=== PATIENT | female | born 1990 | race Caucasian/White ===

== ENCOUNTER 2024-08-26 17:07 | Emergency (ER) | payer OTHER ==
--- NOTE | 2024-08-26 17:16 | ERPHSYRPT ---
- History of Present Illness Time Seen by Provider: 08/26/24 17:15 Historian: patient, family Exam Limitations: no limitations Physician History: Pt had onset of sharp RUQ pain yesterday and came to ER today. No hx of trauma or fall. No blood thinners. Had GB out previously and TAHBSO. tender RUQ/ RLQ. Not SObreath No CP but has right rib pain with breath. Chest clear ht reg without M. Discussed with pt and family risks and benefits of testing/Tx including CBC, CMP, EKG, UA, Amylase, Lipase, CT abd , pain med, and they wish to p roceed so these are ordered. Results discussed with pt and available family. Timing/Duration: yesterday Activities at Onset: none Quality: sharpness, stabbing Abdominal Pain Onset Location: RUQ Pain Radiation: RLQ Severity of Pain-Max: moderate Severity of Pain-Current: moderate Associated Symptoms: denies symptoms Previous symptoms: no prior history Allergies/Adverse Reactions: diphenhydramine [From Benadryl] Allergy (Verified 08/26/24 17:24) ketorolac [From Toradol] Allergy (Verified 08/26/24 17:24) naproxen Allergy (Verified 08/26/24 17:24) tramadol Allergy (Verified 08/26/24 17:24) Home Medications: Estradiol [Menostar] 0.075 mg TD 2XW 08/26/24 [History] Fluoxetine HCl 20 mg PO DAILY 08/26/24 [History] LORazepam [Lorazepam] 1 mg PO BID 08/26/24 [History] - Review of Systems Constitutional: No Fever, No Chills Eyes: No Symptoms Ears, Nose, & Throat: No Symptoms Respiratory: No Cough, No Dyspnea Cardiac: No Chest Pain, No Edema, No Syncope Abdominal/Gastrointestinal: Abdominal Pain, No Nausea, No Vomiting, No Diarrhea Genitourinary Symptoms: No Dysuria Musculoskeletal: No Back Pain, No Neck Pain Skin: No Rash Neurological: No Dizziness, No Focal Weakness, No Sensory Changes Psychological: No Symptoms Endocrine: No Symptoms Hematologic/Lymphatic: No Symptoms Immunological/Allergic: No Symptoms All Other Systems: Reviewed and Negative - Past Medical History Pertinent Past Medical History: Yes GI Medical History: Gallbladder Disease - Past Surgical History Gastrointestinal: Cholecystectomy Female Surgical History: Hysterectomy - Nursing Vital Signs Nursing Vital Signs: Initial Vital Signs Temperature 98.1 F 08/26/24 17:14 Pulse Rate 119 H 08/26/24 17:14 Blood Pressure 132/96 08/26/24 17:14 O2 Sat by Pulse Oximetry 100 08/26/24 17:14 Pain Scale Pain Intensity 6 - Physical Exam General Appearance: no apparent distress, alert Eye Exam: PERRL/EOMI, eyes nml inspection Ears, Nose, Throat Exam: normal ENT inspection, pharynx normal, moist mucous membranes Neck Exam: normal inspection, non-tender, supple, full range of motion Respiratory Exam: normal breath sounds, lungs clear, No respiratory distress Cardiovascular Exam: regular rate/rhythm, normal heart sounds Gastrointestinal/Abdomen Exam: soft, tenderness (RUQ), No distention, No mass, No guarding, No pulsatile mass, No rebound Pelvic Exam: deferred Rectal Exam: deferred Back Exam: normal inspection, normal range of motion, No CVA tenderness, No vertebral tenderness Extremity Exam: normal inspection, normal range of motion, pelvis stable Neurologic Exam: alert, oriented x 3, cooperative, normal mood/affect, nml cerebellar function, sensation nml, No motor deficits Skin Exam: normal color, warm, dry SpO2 Interpretation: normal SpO2: 100 O2 Delivery: Room Air - Course Nursing assessment & vital signs reviewed: Yes EKG Interpreted by Me: Sinus Rhythm, NORMAL AXIS, NORMAL INTERVALS, NORMAL QRS, NORMAL ST-T, Other (LAE) - CT Exams Abdomen/Pelvis CT Interpretation: Tele-radiologist Report, Normal Appendix, No appendicitis, Other (thickening duodenum and jejunum ground glass lungs and nodules) Ordered Tests: Active Orders 24 hr Category Date Time Status EKG-ER Only STAT Care 08/26/24 17:43 Active IV Insertion STAT Care 08/26/24 17:43 Active ABDOMEN AND PELVIS W/0 CONTRAS [CT] Stat Exams 08/26/24 17:44 Completed AMYLASE Stat Lab 08/26/24 17:55 Completed CBC W DIFF Stat Lab 08/26/24 17:55 Completed CMP Stat Lab 08/26/24 17:55 Completed LIPASE Stat Lab 08/26/24 17:55 Completed Lactic Acid Stat Lab 08/26/24 17:50 Completed UA W/RFX UR CULTURE Stat Lab 08/26/24 17:56 Completed Medication Summary Discontinued Medications Generic Name Dose Route Start Last Admin Trade Name Freq PRN Reason Stop Dose Admin Hydromorphone HCl 0.5 mg 08/26/24 17:46 08/26/24 18:00 Hydromorphone 1 Mg/1ml Inj IV 08/26/24 17:47 0.5 mg STAT ONE Administration Hydromorphone HCl Confirm 08/26/24 17:58 Hydromorphone 1 Mg/1ml Inj Administered 08/26/24 17:59 Dose 1 mg .ROUTE .STK-MED ONE Hydromorphone HCl 1 mg 08/26/24 19:11 08/26/24 19:19 Hydromorphone 1 Mg/1ml Inj IV 08/26/24 19:12 1 mg STAT ONE Administration Hydromorphone HCl Confirm 08/26/24 19:17 Hydromorphone 1 Mg/1ml Inj Administered 08/26/24 19:18 Dose 1 mg .ROUTE .STK-MED ONE Ondansetron HCl 4 mg 08/26/24 17:43 08/26/24 18:00 Ondansetron Hcl 4 Mg/2 Ml Vial IV 08/26/24 17:44 4 mg STAT ONE Administration Ondansetron HCl Confirm 08/26/24 17:58 Ondansetron Hcl 4 Mg/2 Ml Vial Administered 08/26/24 17:59 Dose 4 mg .ROUTE .STK-MED ONE Lab/Rad Data: Laboratory Result Diagrams 08/26/24 17:55 08/26/24 17:55 Laboratory Results 08/26/24 08/26/24 08/26/24 Range/Units 19:17 17:56 17:55 WBC (3.98-10.04) x10^3/uL RBC (3.93-5.22) x10^6/uL Hgb (11.2-15.7) g/dL Hct (34.1-44.9) % MCV (79.4-94.8) fL MCH (25.6-32.2) pg MCHC (32.2-35.5) g/dL RDW (11.7-14.4) % Plt Count (182-369) x10^3/uL MPV (9.4-12.3) fL Gran % (34.0-71.1) % Immature Gran % (Auto) (0.001-0.429) % Nucleat RBC Rel Count (0.00-0.2) % Eos # (Auto) (0.04-0.36) x10^3/uL Immature Gran # (Auto) (0.001-0.031) x10^3u/L Absolute Lymphs (auto) (1.18-3.74) x10^3/uL Absolute Monos (auto) (0.24-0.86) x10^3/uL Absolute Nucleated RBC (0.00-0.012) x10^3u/L Lymphocytes % (19.3-51.7) % Monocytes % (4.7-12.5) % Eosinophils % (0.7-5.8) % Basophils % (0.1-1.2) % Absolute Granulocytes (1.56-6.13) x10^3/uL Basophils # (0.01-0.08) x10^3/uL Sodium 138 (135-145) mmol/L Potassium 3.5 (3.5-5.1) mmol/L Chloride 107 (98-107) mmol/L Carbon Dioxide 25 (22-30) mmol/L Anion Gap 9.8 (5-15) MEQ/L BUN 6 L (7-17) mg/dL Creatinine 0.69 (0.52-1.04) mg/dL Estimated GFR 116.7 ML/MIN Glucose 97 (74-106) mg/dL Lactic Acid (0.4-2.0) Calcium 8.8 (8.4-10.2) mg/dL Total Bilirubin 0.50 (0.2-1.3) mg/dL AST 26 (14-36) U/L ALT 15 (0-35) U/L Alkaline Phosphatase 105 (38-126) U/L Serum Total Protein 8.0 (6.3-8.2) g/dL Albumin 4.4 (3.5-5.0) g/dL Amylase 49 (30-110) U/L Lipase 147 (23-300) U/L Urine Color Yellow (Yellow) Urine Appearance Clear (Clear) Urine pH 8.0 (4.6-8.0) Ur Specific [place] 1.010 (1.005-1.030) Urine Protein Negative (Negative) Urine Glucose (UA) Negative (Negative) mg/dL Urine Ketones Negative (Negative) Urine Blood Negative (Negative) Urine Nitrite Negative (Negative) Urine Bilirubin Negative (Negative) Urine Urobilinogen 0.2 (0.2) mg/dL Ur Leukocyte Esterase Negative (Negative) U Hyaline Cast (Auto) NONE SEEN (0-2) /LPF Urine Microscopic RBC 0-2 (0-5) /HPF Urine Microscopic WBC 0-2 (0-5) /HPF Ur Epithelial Cells None Seen (None Seen) /HPF Urine Bacteria None Seen (None Seen) /HPF Urine Culture Reflexed NO (NO) Influenza Type A Ag NEGATIVE (NEGATIVE) Influenza Type B Ag NEGATIVE (NEGATIVE) RSV (PCR) NEGATIVE (NEGATIVE) SARS-CoV-2 (PCR) NEGATIVE (NEGATIVE) 08/26/24 08/26/24 Range/Units 17:55 17:50 WBC 7.2 (3.98-10.04) x10^3/uL RBC 3.99 (3.93-5.22) x10^6/uL Hgb 11.7 (11.2-15.7) g/dL Hct 35.6 (34.1-44.9) % MCV 89.2 (79.4-94.8) fL MCH 29.3 (25.6-32.2) pg MCHC 32.9 (32.2-35.5) g/dL RDW 12.8 (11.7-14.4) % Plt Count 332 (182-369) x10^3/uL MPV 9.1 L (9.4-12.3) fL Gran % 60.8 (34.0-71.1) % Immature Gran % (Auto) 0.3 (0.001-0.429) % Nucleat RBC Rel Count 0.0 (0.00-0.2) % Eos # (Auto) 0.02 L (0.04-0.36) x10^3/uL Immature Gran # (Auto) 0.02 (0.001-0.031) x10^3u/L Absolute Lymphs (auto) 2.33 (1.18-3.74) x10^3/uL Absolute Monos (auto) 0.42 (0.24-0.86) x10^3/uL Absolute Nucleated RBC 0.00 (0.00-0.012) x10^3u/L Lymphocytes % 32.4 (19.3-51.7) % Monocytes % 5.8 (4.7-12.5) % Eosinophils % 0.3 L (0.7-5.8) % Basophils % 0.4 (0.1-1.2) % Absolute Granulocytes 4.37 (1.56-6.13) x10^3/uL Basophils # 0.03 (0.01-0.08) x10^3/uL Sodium (135-145) mmol/L Potassium (3.5-5.1) mmol/L Chloride (98-107) mmol/L Carbon Dioxide (22-30) mmol/L Anion Gap (5-15) MEQ/L BUN (7-17) mg/dL Creatinine (0.52-1.04) mg/dL Estimated GFR ML/MIN Glucose (74-106) mg/dL Lactic Acid 1.0 (0.4-2.0) Calcium (8.4-10.2) mg/dL Total Bilirubin (0.2-1.3) mg/dL AST (14-36) U/L ALT (0-35) U/L Alkaline Phosphatase (38-126) U/L Serum Total Protein (6.3-8.2) g/dL Albumin (3.5-5.0) g/dL Amylase (30-110) U/L Lipase (23-300) U/L Urine Color (Yellow) Urine Appearance (Clear) Urine pH (4.6-8.0) Ur Specific [place] (1.005-1.030) Urine Protein (Negative) Urine Glucose (UA) (Negative) mg/dL Urine Ketones (Negative) Urine Blood (Negative) Urine Nitrite (Negative) Urine Bilirubin (Negative) Urine Urobilinogen (0.2) mg/dL Ur Leukocyte Esterase (Negative) U Hyaline Cast (Auto) (0-2) /LPF Urine Microscopic RBC (0-5) /HPF Urine Microscopic WBC (0-5) /HPF Ur Epithelial Cells (None Seen) /HPF Urine Bacteria (None Seen) /HPF Urine Culture Reflexed (NO) Influenza Type A Ag (NEGATIVE) Influenza Type B Ag (NEGATIVE) RSV (PCR) (NEGATIVE) SARS-CoV-2 (PCR) (NEGATIVE) - Progress Progress: improved, re-examined Progress Note: 08/26/24 17:59 initial pain level is 9. pt has jean paul dilaudid previously well. 08/26/24 20:54 pain is at 0 now. DIscussed doudinitis findings with pt and she would like to begin presumptive tx H pylori now rather than wait for testing and has the capacity to make this choice. pt also is advised that we do not have a precise diagnosis for her abd pain and that undetected pathology could still be developing including more serious conditions. She understands and wishes outpt tx for the h pylori presumptively and f/u PMD and electromechanical assembly technician rather than admission tonight or further w/u in hospital or ER and has the capacity to make this choice. Counseled pt/family regarding: lab results, diagnosis, need for follow-up, rad results Medical Desision Making - Independent Historian Additional History obtained from: Family - Discussion of managment Reviewed:: Test results, Need for additional workup Agreed on:: Treatment plan, need for follow-up - Diagnostic Testing Diagnostic test were ordered, analyzed, and reviewed by me: Yes Radiological Interpretation: Teleradiologist Report - Risk of complications The pt has a mod risk of morbidity or mortality based on: Need for prescription drug management The pt has a high risk of morbidity or mortality based on: Decision regarding hospitilization or escalation of hosp level of care - Departure Departure Disposition: Home Clinical Impression: Abdominal pain, Duodenitis, lung nodules Condition: Good Critical Care Time: No Referrals: NAOMI PONCE MD [Primary Care Provider] - Follow up/PCP as directed Instructions: H. pylori infection, Abdominal pain in adults - ED discharge instructions, Multiple pulmonary nodules Additional Instructions: We have not determined for certain the exact cause of your pain, but did find inflammation in the duodenum which can be caused by H pylori infections and as we agreed will will begin that treatment . It is still important for you to followup with your DrSabine to finish working this up and to exclude other conditions. You also have some lung findings and nodule although you had no lung symptoms but these are important to also see your Dr, for and he may want additoinal imaging for these nodules. Return meantime if vomiting, increased pain, dizziness, short of breath chest pain or any other symptoms of concern. Prescriptions: Amoxicillin 1,000 mg PO BID #60 tablet Amoxicillin [AMOXIL 250 MG CAPSULE] 1,000 mg PO BID #120 cap Clarithromycin 500 mg PO BID #30 tablet Omeprazole 20 mg PO DAILY #20 cap
[2024-08-26 17:24] VITALS: TEMP 98.1
[2024-08-26 17:58] LABS: Absolute Neutrophil Ct (ANC) 4.37 x10^3/uL (1.56-6.13); BASOPHIL % 0.4 % (0.1-1.2); Basophil (Absolute #) 0.03 x10^3/uL (0.01-0.08); Eosinophil % 0.3 % (0.7-5.8); Eosinophil (Absolute #) 0.02 x10^3/uL (0.04-0.36); Hematocrit 35.6 % (34.1-44.9); Hemoglobin 11.7 g/dL (11.2-15.7); IMMATURE GRAN # 0.02 x10^3u/L (0.001-0.031); IMMATURE GRAN % 0.3 % (0.001-0.429); Lymphocyte (Absolute #) 2.33 x10^3/uL (1.18-3.74); Lymphocytes % 32.4 % (19.3-51.7); Mean Cell Volume 89.2 fL (79.4-94.8); Mean Corpuscular Hemoglobin 29.3 pg (25.6-32.2); Mean Corpuscular Hgb Concent. 32.9 g/dL (32.2-35.5); Mean Platelet Volume 9.1 fL (9.4-12.3); Monocyte (Absolute #) 0.42 x10^3/uL (0.24-0.86); Monocytes % 5.8 % (4.7-12.5); Neutrophil % 60.8 % (34.0-71.1); Platelet Count 332 x10^3/uL (182-369); Red Blood Count 3.99 x10^6/uL (3.93-5.22); Red Cell Distribution Width 12.8 % (11.7-14.4); White Blood Count 7.2 x10^3/uL (3.98-10.04)
[2024-08-26] MEDS ORDERED: Zofran 4 MG/2 ML VIAL ONE (17:58)
[2024-08-26] MEDS ORDERED: Hydromorphone 1 mg/ml Injection ONE ×2 (17:58→19:17)
[2024-08-26] MEDS: Zofran 4 MG/2 ML VIAL IV ONE (18:00)
[2024-08-26] MEDS: Hydromorphone 1 mg/ml Injection IV ONE ×2 (18:00→19:19)
[2024-08-26 18:10] LABS: ALBUMIN 4.4 g/dL (3.5-5.0); ANION GAP 9.8 MEQ/L (5-15); BILIRUBIN,TOTAL 0.5 mg/dL (0.2-1.3); Calcium 8.8 mg/dL (8.4-10.2); Creatinine 1 0.69 mg/dL (0.52-1.04); EST GLOMERULAR FILTRATION RATE 116.7 ML/MIN; Potassium 3.5 mmol/L (3.5-5.1)
[2024-08-26 18:40] LABS: Appearance Clear (Clear); Bacteria None Seen /HPF (None Seen); Bilirubin Negative (Negative); Blood Negative (Negative); Epithelial Cells None Seen /HPF (None Seen); Glucose, Urine Negative (Negative); Hyaline Casts NONE SEEN /LPF (0-2); Ketones Negative (Negative); Leukocyte Esterase Negative (Negative); Nitrite Negative (Negative); Protein,Urine Dip Negative (Negative); RBC 0-2 /HPF (0-5); Urobilinogen 0.2 mg/dL (0.2); WBC 0-2 /HPF (0-5)
--- NOTE | 2024-08-26 18:54 | XRAY ---
CLINICAL HISTORY: right abd pain COMPARISON: No prior studies available for comparison TECHNIQUE: Non-contrast CT of the abdomen and pelvis was performed, with the following protocol: axial images, and reconstructed coronal and sagittal images. No intravenous contrast was administered. One of the following dose reduction techniques was utilized for this exam: Automated exposure control, adjustment of the mA and/or kV according to patient size, and use of iterative reconstruction. FINDINGS: Lung bases: Patchy ground-glass opacities and several nodules are seen in both lung bases, middle lobe and lingula. The largest nodule measures about 0.7 cm in the middle lobe. Abdomen: Liver: Normal in size, shape, and density. No focal lesions, cysts, or masses were identified. Gallbladder and Biliary System: Not seen, may be surgicall absent. Pancreas: Pancreatic head, body, and tail are visualized and appear normal in size and density. No pancreatic masses or calcifications were noted. Spleen: Normal in size, shape, and density. No splenic lesions or masses were identified. Kidneys and Adrenal Glands: Both kidneys are normal in size, shape, and position. Cortical thickness is within normal limits. No renal calculi or hydronephrosis. Adrenal glands are unremarkable. Appendix: The appendix is normal in size without naveen appendiceal fat stranding, and without an appendicolith. No evidence of appendiceal abscess or perforation. Pelvis: Urinary Bladder: Normal in contour and wall thickness. No intraluminal lesions. Uterus: Not seen. Ovaries: Not well visualized but no gross abnormalities noted. Vagina: Normal in contour and wall thickness. Cervix: No evidence of mass or abnormal thickening. Peritoneal and Retroperitoneal Structures: No free fluid or abnormal fluid collections were identified within the abdomen or pelvis. A 0.8 cm para-aortic lymph node, could be reactive. Bowel: Circumferential wall thickening of the duodenum and proximal jejunum. The rest of the visualized bowel loops are normal in caliber and appearance. No evidence of bowel obstruction or wall thickening. Fecal colonic loading. Bones and Soft Tissues: Pelvic bones and soft tissues are unremarkable. No fractures or abnormal masses were identified. IMPRESSION: 1. Circumferential wall thickening of the duodenum and proximal jejunum, may be inflammatory. Clinical correlation is suggested. 2. Fecal colonic loading. 3. Patchy ground-glass opacities and several nodules in both lung bases, middle lobe and lingula. The largest nodule measures about 0.7 cm in the middle lobe. Suggest dedicated Chest CT if warranted. Electronically Signed by: Laura Cabrera MD. (08/26/2024 18:51:35 EST)
[2024-08-26 19:55] LABS: INFLUENZA A NEGATIVE (NEGATIVE); INFLUENZA B NEGATIVE (NEGATIVE); RESPIRATORY SYNCTIAL VIRUS NEGATIVE (NEGATIVE); SARS-CoV-2 Xpert Express NEGATIVE (NEGATIVE)
[2024-08-26 20:50] VITALS: O2SAT 100
[2024-08-26 21:07] VITALS: BP 131/93; PULSE 69; RESP 15
[2024-08-26] MEDS ORDERED: Protonix 40MG Tablet ONE (21:17)
[2024-08-26] MEDS: Protonix 40MG Tablet PO ONE (21:20)
== END 2024-08-26 21:29 | disposition home or self-care (01) ==
LOC: ED 17:07
DX: R10.9 Unspecified abdominal pain (principal); K29.80 Duodenitis without bleeding; R91.8 Other nonspecific abnormal finding of lung field; Z79.899 Other long term (current) drug therapy
CPT/HCPCS: 0241U; 36415; 74176; 80053; 81001; 82150; 83605; 83690; 85025; 93005; 96374; 96375; 99285; 99284; J1171; J2405; A9270-GY

== ENCOUNTER 2024-08-27 14:26 | Emergency (ER) | payer OTHER ==
[2024-08-27 14:37] VITALS: TEMP 98
--- NOTE | 2024-08-27 14:39 | ERPHSYRPT ---
- History of Present Illness Time Seen by Provider: 08/27/24 14:39 Historian: patient, family Exam Limitations: clinical condition Patient Subjective Stated Complaint: pt was at this ER last night complaining of right sided rib/lung pain and returns today with the same pain but states that it is going into her left chest Triage Nursing Assessment: Pt was brought to the ER by her , tachycardic, rates pain as 9/10, pulses normal, skin n/w/d, no difficulty breathing, denies N&V, doesn't appear to be in any distress Physician History: This is a 34-year-old white female patient who was seen in our emergency depa rtment on 08/26/2024 and underwent extensive workup and patient was diagnosed with duodenitis, jejunitis and groundglass opacities/lung nodules at the bases. Patient was prescribed amoxicillin, clarithromycin and omeprazole. Since her evaluation less than 24 hours ago, patient states that she is having significant pain in her right chest as well as the left side of her chest. She states that she has been taking her medication that was prescribed to her yesterday. Patient has a history gastroesophageal reflux disease, anxiety, depression, endometriosis. She has had a hysterectomy and cholecystectomy performed in the past. Timing/Duration: today Activities at Onset: none Quality: sharpness, stabbing Location: abdomen (Upper quadrant) Severity of Pain-Max: moderate Severity of Pain-Current: moderate Modifying Factors: Improves With: nothing Prior Chest Pain/Cardiac Workup: no prior cardiac workup Nitro Today/Relief: no nitro taken today Aspirin Treatment Today: no aspirin today Allergies/Adverse Reactions: diphenhydramine [From Benadryl] Allergy (Verified 08/27/24 14:37) ketorolac [From Toradol] Allergy (Verified 08/27/24 14:37) naproxen Allergy (Verified 08/27/24 14:37) tramadol Allergy (Verified 08/27/24 14:37) Home Medications: Estradiol [Menostar] 0.075 mg TD 2XW 08/26/24 [History] Fluoxetine HCl 20 mg PO DAILY 08/26/24 [History] LORazepam [Lorazepam] 1 mg PO BID 08/26/24 [History] Hx Influenza Vaccination/Date Given: No Hx Pneumococcal Vaccination/Date Given: No Travel Risk - International Travel Have you traveled outside of the country in past 3 weeks: No - Emerging Infectious Disease Are you exhibiting symptoms associated with any current EIDs: Yes Symptoms: Abdominal Pain - Review of Systems Constitutional: No Symptoms Eyes: No Symptoms Ears, Nose, & Throat: No Symptoms Respiratory: No Symptoms Cardiac: Chest Pain (Right and left side chest pain) Abdominal/Gastrointestinal: Abdominal Pain (Right upper quadrant abdominal pain) Genitourinary Symptoms: No Symptoms Musculoskeletal: No Symptoms Skin: No Symptoms Neurological: No Symptoms Psychological: No Symptoms Endocrine: No Symptoms Hematologic/Lymphatic: No Symptoms Immunological/Allergic: No Symptoms All Other Systems: Reviewed and Negative - Past Medical History Pertinent Past Medical History: Yes GI Medical History: Gallbladder Disease Psycho-Social History: Anxiety, Depression Female Reproductive Disorders: Endometriosis - Past Surgical History Past Surgical History: Yes Gastrointestinal: Cholecystectomy Female Surgical History: Hysterectomy - Female History Hx Last Menstrual Period: hysterectomy Hx Now: No - Social History Smoking Status: Never smoker Exposure to second hand smoke: Yes Drug Use: marijuana - Social Determinants of Health Will the patient participate in the screening: Yes Do you worry about a steady place to live?: No Do you have any problems with any of the following?: No known problems In the past 12 months,have you had to go without utilities?: No Transportation Issues: No Has anyone in your support network made you feel unsafe?: No Have you or anyone in your house had to go without enough: No - Nursing Vital Signs Nursing Vital Signs: Initial Vital Signs Temperature 98.0 F 08/27/24 14:30 Pulse Rate 103 H 08/27/24 14:30 Blood Pressure 115/83 08/27/24 14:30 O2 Sat by Pulse Oximetry 98 08/27/24 14:30 Pain Scale Pain Intensity 9 - Physical Exam General Appearance: mild distress, alert, anxiety, thin Eye Exam: PERRL/EOMI, eyes nml inspection Ears, Nose, Throat Exam: normal ENT inspection, moist mucous membranes Neck Exam: normal inspection, non-tender, supple, full range of motion Respiratory Exam: normal breath sounds, chest tenderness, lungs clear, airway intact, No respiratory distress Cardiovascular Exam: tachycardia Gastrointestinal/Abdomen Exam: soft, normal bowel sounds, tenderness (Right upper quadrant to palpation), guarding (Right upper quadrant to palpation) Pelvic Exam: not done Rectal Exam: not done Back Exam: normal inspection, normal range of motion, No CVA tenderness, No vertebral tenderness Neurologic Exam: alert, oriented x 3, cooperative, overlock elastic attacher II-XII nml as tested, nml cerebellar function, nml station & gait, sensation nml Skin Exam: normal color, warm, dry Lymphatic Exam: No adenopathy SpO2 Interpretation: normal SpO2: 98 O2 Delivery: Room Air - Course Nursing assessment & vital signs reviewed: Yes Ordered Tests: Active Orders 24 hr Category Date Time Status Fretted Instrument Inspector STAT Care 08/27/24 14:51 Active EKG-ER Only STAT Care 08/27/24 14:51 Active IV Insertion STAT Care 08/27/24 14:51 Active Pulse Oximetry (ED) STAT Care 08/27/24 14:51 Active CBC W DIFF Stat Lab 08/27/24 15:05 Completed CMP Stat Lab 08/27/24 15:05 Completed D-DIMER QUANTITATIVE Stat Lab 08/27/24 15:05 Completed MAGNESIUM Stat Lab 08/27/24 15:05 Completed TROPONIN Q4H Lab 08/27/24 15:05 Completed TROPONIN Q4H Lab 08/27/24 19:00 Ordered TROPONIN Q4H Lab 08/27/24 23:00 Ordered Medication Summary Discontinued Medications Generic Name Dose Route Start Last Admin Trade Name Freq PRN Reason Stop Dose Admin Hydromorphone HCl 0.5 mg 08/27/24 14:52 08/27/24 15:21 Hydromorphone 1 Mg/1ml Inj IV 08/27/24 14:53 0.5 mg STAT ONE Administration Hydromorphone HCl Confirm 08/27/24 15:12 Hydromorphone 1 Mg/1ml Inj Administered 08/27/24 15:13 Dose 1 mg .ROUTE .STK-MED ONE Hydromorphone HCl 0.5 mg 08/27/24 16:44 Hydromorphone 1 Mg/1ml Inj IV 08/27/24 16:45 STAT ONE Lorazepam 1 mg 08/27/24 14:52 08/27/24 15:20 Lorazepam 2 Mg/1 Ml 2 Mg Vial IV 08/27/24 14:53 1 mg STAT ONE Administration Lorazepam Confirm 08/27/24 15:12 Lorazepam 2 Mg/1 Ml 2 Mg Vial Administered 08/27/24 15:13 Dose 2 mg .ROUTE .STK-MED ONE Ondansetron HCl 4 mg 08/27/24 14:51 08/27/24 15:20 Ondansetron Hcl 4 Mg/2 Ml Vial IV 08/27/24 14:52 4 mg STAT ONE Administration Ondansetron HCl Confirm 08/27/24 15:11 Ondansetron Hcl 4 Mg/2 Ml Vial Administered 08/27/24 15:12 Dose 4 mg .ROUTE .K-MED ONE Lab/Rad Data: Laboratory Result Diagrams 08/27/24 15:05 08/27/24 15:05 Laboratory Results 08/27/24 08/27/24 08/27/24 Range/Units 15:05 15:05 15:05 WBC (3.98-10.04) x10^3/uL RBC (3.93-5.22) x10^6/uL Hgb (11.2-15.7) g/dL Hct (34.1-44.9) % MCV (79.4-94.8) fL MCH (25.6-32.2) pg MCHC (32.2-35.5) g/dL RDW (11.7-14.4) % Plt Count (182-369) x10^3/uL MPV (9.4-12.3) fL Gran % (34.0-71.1) % Immature Gran % (Auto) (0.001-0.429) % Nucleat RBC Rel Count (0.00-0.2) % Eos # (Auto) (0.04-0.36) x10^3/uL Immature Gran # (Auto) (0.001-0.031) x10^3u/L Absolute Lymphs (auto) (1.18-3.74) x10^3/uL Absolute Monos (auto) (0.24-0.86) x10^3/uL Absolute Nucleated RBC (0.00-0.012) x10^3u/L Lymphocytes % (19.3-51.7) % Monocytes % (4.7-12.5) % Eosinophils % (0.7-5.8) % Basophils % (0.1-1.2) % Absolute Granulocytes (1.56-6.13) x10^3/uL Basophils # (0.01-0.08) x10^3/uL D-Dimer 0.33 (0.0-0.50) mg/L Sodium 140 (135-145) mmol/L Potassium 3.5 (3.5-5.1) mmol/L Chloride 105 (98-107) mmol/L Carbon Dioxide 24 (22-30) mmol/L Anion Gap 13.7 (5-15) MEQ/L BUN 6 L (7-17) mg/dL Creatinine 0.76 (0.52-1.04) mg/dL Estimated GFR 105.4 ML/MIN Glucose 111 H (74-106) mg/dL Calcium 8.9 (8.4-10.2) mg/dL Magnesium 1.9 (1.6-2.3) mg/dL Total Bilirubin 0.60 (0.2-1.3) mg/dL AST 26 (14-36) U/L ALT 16 (0-35) U/L Alkaline Phosphatase 103 (38-126) U/L Troponin I < 0.012 (0.000-0.033) ng/mL Serum Total Protein 8.1 (6.3-8.2) g/dL Albumin 4.4 (3.5-5.0) g/dL 08/27/24 Range/Units 15:05 WBC 6.4 (3.98-10.04) x10^3/uL RBC 4.33 (3.93-5.22) x10^6/uL Hgb 12.6 (11.2-15.7) g/dL Hct 38.7 (34.1-44.9) % MCV 89.4 (79.4-94.8) fL MCH 29.1 (25.6-32.2) pg MCHC 32.6 (32.2-35.5) g/dL RDW 12.8 (11.7-14.4) % Plt Count 363 (182-369) x10^3/uL MPV 9.5 (9.4-12.3) fL Gran % 57.3 (34.0-71.1) % Immature Gran % (Auto) 0.3 (0.001-0.429) % Nucleat RBC Rel Count 0.0 (0.00-0.2) % Eos # (Auto) 0.04 (0.04-0.36) x10^3/uL Immature Gran # (Auto) 0.02 (0.001-0.031) x10^3u/L Absolute Lymphs (auto) 2.27 (1.18-3.74) x10^3/uL Absolute Monos (auto) 0.38 (0.24-0.86) x10^3/uL Absolute Nucleated RBC 0.00 (0.00-0.012) x10^3u/L Lymphocytes % 35.4 (19.3-51.7) % Monocytes % 5.9 (4.7-12.5) % Eosinophils % 0.6 L (0.7-5.8) % Basophils % 0.5 (0.1-1.2) % Absolute Granulocytes 3.68 (1.56-6.13) x10^3/uL Basophils # 0.03 (0.01-0.08) x10^3/uL D-Dimer (0.0-0.50) mg/L Sodium (135-145) mmol/L Potassium (3.5-5.1) mmol/L Chloride (98-107) mmol/L Carbon Dioxide (22-30) mmol/L Anion Gap (5-15) MEQ/L BUN (7-17) mg/dL Creatinine (0.52-1.04) mg/dL Estimated GFR ML/MIN Glucose (74-106) mg/dL Calcium (8.4-10.2) mg/dL Magnesium (1.6-2.3) mg/dL Total Bilirubin (0.2-1.3) mg/dL AST (14-36) U/L ALT (0-35) U/L Alkaline Phosphatase (38-126) U/L Troponin I (0.000-0.033) ng/mL Serum Total Protein (6.3-8.2) g/dL Albumin (3.5-5.0) g/dL - Progress Progress: improved, re-examined Air Movement: good Progress Note: 08/27/24 14:57 My medical decision making and the assignment of moderate complexity to this patient's medical issue today is based on review of the patient's past medical history, review the patient's medication list, reviewed patient drug allergy list, history present illness and physical findings on examination. The workup in this patient includes placement of intravenous line, infusion of Ativan, infusion of Dilaudid, infusion of Zofran, CBC, CMP, magnesium, twelve-lead EKG, D-dimer level. I do not think is necessary to repeat the CT scan of the abdomen and pelvis. If the D-dimer is elevated we will perform a CT scan of the chest with contrast. Differential diagnosis includes was not limited to anxiety about health, uncontrolled pain, myocardial infarction, pulmonary embolus, pneumonia 08/27/24 16:15 I interpreted the patient's laboratory data results. Based on the laboratory data results, there are no acute, emergent medical issues. Blood Culture(s) Obtained: No Antibiotics given: No Medical Desision Making - Diagnostic Testing Diagnostic test were ordered, analyzed, and reviewed by me: Yes - Risk of complications The pt has a mod risk of morbidity or mortality based on: Need for prescription drug management - Departure Departure Disposition: Home Clinical Impression: Nonspecific chest pain Condition: Stable Critical Care Time: No Referrals: NAOMI PONCE MD [Primary Care Provider] - Follow up/PCP as directed Additional Instructions: Take all your medication as prescribed. Call your primary care provider tomorrow, 08/28/2024, to make a follow-up appointment to be seen in the next 3 to 5 days. Prescriptions: Hydrocodone/APAP 5/325 [Ransom 5/325 mg] 1 each PO Q8H PRN PRN #6 tablet MDD 3 PRN Reason: Pain
[2024-08-27 15:07] LABS: Absolute Neutrophil Ct (ANC) 3.68 x10^3/uL (1.56-6.13); BASOPHIL % 0.5 % (0.1-1.2); Basophil (Absolute #) 0.03 x10^3/uL (0.01-0.08); Eosinophil % 0.6 % (0.7-5.8); Eosinophil (Absolute #) 0.04 x10^3/uL (0.04-0.36); Hematocrit 38.7 % (34.1-44.9); Hemoglobin 12.6 g/dL (11.2-15.7); IMMATURE GRAN # 0.02 x10^3u/L (0.001-0.031); IMMATURE GRAN % 0.3 % (0.001-0.429); Lymphocyte (Absolute #) 2.27 x10^3/uL (1.18-3.74); Lymphocytes % 35.4 % (19.3-51.7); Mean Cell Volume 89.4 fL (79.4-94.8); Mean Corpuscular Hemoglobin 29.1 pg (25.6-32.2); Mean Corpuscular Hgb Concent. 32.6 g/dL (32.2-35.5); Mean Platelet Volume 9.5 fL (9.4-12.3); Monocyte (Absolute #) 0.38 x10^3/uL (0.24-0.86); Monocytes % 5.9 % (4.7-12.5); Neutrophil % 57.3 % (34.0-71.1); Platelet Count 363 x10^3/uL (182-369); Red Blood Count 4.33 x10^6/uL (3.93-5.22); Red Cell Distribution Width 12.8 % (11.7-14.4); White Blood Count 6.4 x10^3/uL (3.98-10.04)
[2024-08-27] MEDS ORDERED: Zofran 4 MG/2 ML VIAL ONE (15:11)
[2024-08-27] MEDS ORDERED: Ativan 2 MG/1 ML VIAL ONE (15:12)
[2024-08-27] MEDS ORDERED: Hydromorphone 1 mg/ml Injection ONE ×2 (15:12→17:10)
[2024-08-27] MEDS: Zofran 4 MG/2 ML VIAL IV ONE (15:20)
[2024-08-27] MEDS: Ativan 2 MG/1 ML VIAL IV ONE (15:20)
[2024-08-27] MEDS: Hydromorphone 1 mg/ml Injection IV ONE ×2 (15:21→17:13)
[2024-08-27 15:22] LABS: ALBUMIN 4.4 g/dL (3.5-5.0); ANION GAP 13.7 MEQ/L (5-15); BILIRUBIN,TOTAL 0.6 mg/dL (0.2-1.3); Calcium 8.9 mg/dL (8.4-10.2); Creatinine 1 0.76 mg/dL (0.52-1.04); EST GLOMERULAR FILTRATION RATE 105.4 ML/MIN; MAGNESIUM 1.9 mg/dL (1.6-2.3); Potassium 3.5 mmol/L (3.5-5.1); Total Protein 8.1 g/dL (6.3-8.2)
[2024-08-27 17:05] VITALS: BP 111/78; PULSE 92; RESP 16; O2SAT 97
== END 2024-08-27 17:25 | disposition home or self-care (01) ==
LOC: ED 14:26
DX: R07.9 Chest pain, unspecified (principal); Z79.891 Long term (current) use of opiate analgesic; Z79.899 Other long term (current) drug therapy
CPT/HCPCS: 36415; 80053; 83735; 84484; 85025; 85379; 93005; 93041; 94760; 96374; 96375; 96376; 99284; J1171; J2060; J2405

== ENCOUNTER 2025-02-22 14:41 | Emergency (ER) | payer SELFPAY ==
[2025-02-22 14:50] VITALS: TEMP 98
[2025-02-22] MEDS ORDERED: Zofran 4 MG/2 ML VIAL ONE (15:14)
[2025-02-22] MEDS ORDERED: Hydromorphone 1 mg/ml Injection ONE (15:14)
[2025-02-22] MEDS: Zofran 4 MG/2 ML VIAL IV ONE (15:17)
[2025-02-22] MEDS: Hydromorphone 1 mg/ml Injection IV ONE (15:17)
[2025-02-22 15:20] LABS: BASOPHIL % 0.3 % (0.1-1.2); Basophil (Absolute #) 0.02 x10^3/uL (0.01-0.08); Eosinophil (Absolute #) 0.09 x10^3/uL (0.04-0.36); Hematocrit 41.6 % (34.1-44.9); Hemoglobin 13.6 g/dL (11.2-15.7); IMMATURE GRAN # 0.01 x10^3u/L (0.001-0.031); IMMATURE GRAN % 0.2 % (0.001-0.429); Lymphocyte (Absolute #) 2.87 x10^3/uL (1.18-3.74); Mean Corpuscular Hemoglobin 29.5 pg (25.6-32.2); Mean Corpuscular Hgb Concent. 32.7 g/dL (32.2-35.5); Monocyte (Absolute #) 0.34 x10^3/uL (0.24-0.86); NUCLEATED RBC # 0.00 x10^3u/L (0.00-0.012); NUCLEATED RBC % 0.0 % (0.00-0.2); Platelet Count 399 x10^3/uL (182-369); Red Blood Count 4.61 x10^6/uL (3.93-5.22); White Blood Count 6.4 x10^3/uL (3.98-10.04)
[2025-02-22 15:34] LABS: Calcium 9.4 mg/dL (8.4-10.2); Carbon Dioxide 23.0 mmol/L (22-30); Creatinine 1 0.71 mg/dL (0.52-1.04); EST GLOMERULAR FILTRATION RATE 114.4 ML/MIN; Glucose 99.0 mg/dL (74-106); Potassium 3.7 mmol/L (3.5-5.1); SGOT/AST 27.0 U/L (14-36); SGPT/ALT 14.0 U/L (0-35); Total Protein 9.1 g/dL (6.3-8.2)
--- NOTE | 2025-02-22 15:50 | ERPHSYRPT ---
- History of Present Illness Historian: patient Exam Limitations: no limitations Patient Subjective Stated Complaint: Pt c/o of ongoing right rib pain and shortness of breath Triage Nursing Assessment: Pt was brought to the ER by her , tachycardic, rates pain as 8/10, reports being SOB and right rib pain, CT at last ER visit showed nodules that may be consistent with malignancy, nauseous but denies vomiting, doesn't appear to be in any distress Physician History: Patient has pleuritic type chest pain. He is on the right side. Taking a deep breath makes it worse and it is sharp. She says she is a little bit short of breath. She is a bit tachycardic. She was seen for this a while back and I think she was diagnosed with an infectious process and started on antibiotics. She is just not improving. She does not have any fever or chills. She says that she feels like it is hard to get of breath and. It is painful. She says she gets a little bit Winded with exertion.That does not seem to make the pain worse. She does not have a significant past medical history except for she has some nodules in her lung garcia. She is due to get a biopsy in a few days.She is stable otherwise. Timing/Duration: week(s) Activities at Onset: none Associated Symptoms: denies symptoms Prior Chest Pain/Cardiac Workup: no prior chest pain, no prior cardiac workup Aspirin Treatment Today: no aspirin today Allergies/Adverse Reactions: diphenhydramine [From Benadryl] Allergy (Verified 02/22/25 14:50) ketorolac [From Toradol] Allergy (Verified 02/22/25 14:50) naproxen Allergy (Verified 02/22/25 14:50) tramadol Allergy (Verified 02/22/25 14:50) Home Medications: Fluoxetine HCl 10 mg [Prozac 10 mg] 20 mg PO DAILY 01/16/25 [History] LORazepam [Ativan] 1 mg PO TIDPRN PRN 01/16/25 [History] estradioL [Estradiol (Twice Weekly)] 1 each TD WEEKLY 01/16/25 [History] Cariprazine HCl [Vraylar] 1.5 mg PO DAILY 02/22/25 [History] Hx Tetanus, Diphtheria Vaccination/Date Given: Yes Hx Influenza Vaccination/Date Given: Yes Hx Pneumococcal Vaccination/Date Given: No Travel Risk - International Travel Have you traveled outside of the country in past 3 weeks: No - Emerging Infectious Disease Are you exhibiting symptoms associated with any current EIDs: Yes Symptoms: Shortness of Breath - Review of Systems Constitutional: No Symptoms Eyes: No Symptoms, Foreign Body Sensation Respiratory: No Symptoms Cardiac: Chest Pain Musculoskeletal: No Symptoms All Other Systems: Reviewed and Negative - Past Medical History Pertinent Past Medical History: Yes Neurological History: No Pertinent History ENT History: No Pertinent History Cardiac History: No Pertinent History Respiratory History: Pneumonia Endocrine Medical History: No Pertinent History Musculoskeletal History: No Pertinent History GI Medical History: Gallbladder Disease History: No Pertinent History Psycho-Social History: Anxiety, Depression Female Reproductive Disorders: Endometriosis - Past Surgical History Past Surgical History: Yes Neuro Surgical History: No Pertinent History Cardiac: No Pertinent History Respiratory: No Pertinent History Gastrointestinal: Cholecystectomy Genitourinary: No Pertinent History Musculoskeletal: No Pertinent History Female Surgical History: Hysterectomy, Other Other Surgical History: NUTRITION ASSISTANT surgery r/t endometriosis - Female History Hx Last Menstrual Period: n/a Hx Now: No (hysterectomy) - Social History Smoking Status: Never smoker Exposure to second hand smoke: No Drug Use: none - Social Determinants of Health Will the patient participate in the screening: Yes Do you worry about a steady place to live?: No Do you have any problems with any of the following?: No known problems In the past 12 months,have you had to go without utilities?: No Transportation Issues: No Has anyone in your support network made you feel unsafe?: No Have you or anyone in your house had to go w/o enough food: No - Nursing Vital Signs Nursing Vital Signs: Initial Vital Signs Temperature 98.0 F 02/22/25 14:45 Pulse Rate 119 H 02/22/25 14:45 Respiratory Rate 25 H 02/22/25 14:45 Blood Pressure 124/85 02/22/25 14:45 O2 Sat by Pulse Oximetry 100 02/22/25 14:45 Pain Scale Pain Intensity 8 - Physical Exam General Appearance: no apparent distress Eye Exam: PERRL/EOMI Ears, Nose, Throat Exam: normal ENT inspection Neck Exam: normal inspection Respiratory Exam: normal breath sounds, chest tenderness, lungs clear, No respiratory distress Cardiovascular Exam: tachycardia Gastrointestinal/Abdomen Exam: soft Rectal Exam: hemorrhoids Neurologic Exam: alert, oriented x 3, cooperative, nurse practitioner physicians assistant II-XII nml as tested Skin Exam: normal color, warm, dry SpO2: 98 - Course Nursing assessment & vital signs reviewed: Yes Ordered Tests: Active Orders 24 hr Category Date Time Status CHEST 1 VIEW (PORTABLE) Stat Exams 02/22/25 16:38 Taken CBC W DIFF Stat Lab 02/22/25 15:15 Completed CMP Stat Lab 02/22/25 15:15 Completed D-DIMER QUANTITATIVE Stat Lab 02/22/25 15:15 Completed Medication Summary Discontinued Medications Generic Name Dose Route Start Last Admin Trade Name Rahulq PRN Reason Stop Dose Admin Hydromorphone HCl 1 mg 02/22/25 15:04 02/22/25 15:17 Hydromorphone 1 Mg/1ml Inj IV 02/22/25 15:05 1 mg STAT ONE Administration Hydromorphone HCl Confirm 02/22/25 15:14 Hydromorphone 1 Mg/1ml Inj Administered 02/22/25 15:15 Dose 1 mg .ROUTE .STK-MED ONE Ondansetron HCl 4 mg 02/22/25 15:04 02/22/25 15:17 Ondansetron Hcl 4 Mg/2 Ml Vial IV 02/22/25 15:05 4 mg STAT ONE Administration Ondansetron HCl Confirm 02/22/25 15:14 Ondansetron Hcl 4 Mg/2 Ml Vial Administered 02/22/25 15:15 Dose 4 mg .ROUTE .STK-MED ONE Lab/Rad Data: Laboratory Result Diagrams 02/22/25 15:15 02/22/25 15:15 Laboratory Results 02/22/25 02/22/25 02/22/25 Range/Units 15:15 15:15 15:15 WBC 6.4 (3.98-10.04) x10^3/uL RBC 4.61 (3.93-5.22) x10^6/uL Hgb 13.6 (11.2-15.7) g/dL Hct 41.6 (34.1-44.9) % MCV 90.2 (79.4-94.8) fL MCH 29.5 (25.6-32.2) pg MCHC 32.7 (32.2-35.5) g/dL RDW 11.9 (11.7-14.4) % Plt Count 399 H (182-369) x10^3/uL MPV 9.1 L (9.4-12.3) fL Gran % 48.1 (34.0-71.1) % Immature Gran % (Auto) 0.2 (0.001-0.429) % Nucleat RBC Rel Count 0.0 (0.00-0.2) % Eos # (Auto) 0.09 (0.04-0.36) x10^3/uL Immature Gran # (Auto) 0.01 (0.001-0.031) x10^3u/L Absolute Lymphs (auto) 2.87 (1.18-3.74) x10^3/uL Absolute Monos (auto) 0.34 (0.24-0.86) x10^3/uL Absolute Nucleated RBC 0.00 (0.00-0.012) x10^3u/L Lymphocytes % 44.7 (19.3-51.7) % Monocytes % 5.3 (4.7-12.5) % Eosinophils % 1.4 (0.7-5.8) % Basophils % 0.3 (0.1-1.2) % Absolute Granulocytes 3.09 (1.56-6.13) x10^3/uL Basophils # 0.02 (0.01-0.08) x10^3/uL D-Dimer 0.26 (0.0-0.50) mg/L Sodium 141 (135-145) mmol/L Potassium 3.7 (3.5-5.1) mmol/L Chloride 106 (98-107) mmol/L Carbon Dioxide 23 (22-30) mmol/L Anion Gap 15.7 H (5-15) MEQ/L BUN 6 L (7-17) mg/dL Creatinine 0.71 (0.52-1.04) mg/dL Estimated GFR 114.4 ML/MIN Glucose 99 (74-106) mg/dL Calcium 9.4 (8.4-10.2) mg/dL Total Bilirubin 0.30 (0.2-1.3) mg/dL AST 27 (14-36) U/L ALT 14 (0-35) U/L Alkaline Phosphatase 116 (38-126) U/L Serum Total Protein 9.1 H (6.3-8.2) g/dL Albumin 4.5 (3.5-5.0) g/dL - Progress Progress: re-examined, unchanged Progress Note: Patient was stable throughout stay. I got an x-ray showed no acute findings. Her D-dimer was not elevated. I think she does have some pleuritic pain post pneumonia. I am disc and have her take Tylenol Advil. I think she may be a little fluid depleted because she drinks a lot of soft drinks. We just can have her drink a lot of water as well. She is stable for discharge. 02/22/25 17:13 - Departure Departure Disposition: Home Clinical Impression: Pleurisy Condition: Stable Critical Care Time: No Referrals: NAOMI PONCE MD [Primary Care Provider, [facility]] - Follow up/PCP as directed Instructions: Pleuritic chest pain
[2025-02-22] MEDS ORDERED: NORCO 10-325 MG ONE (17:33)
[2025-02-22] MEDS ORDERED: NORCO 5/325 MG ONE (17:39)
[2025-02-22] MEDS: NORCO 5/325 MG PO ONE (17:39)
[2025-02-22 17:50] VITALS: BP 137/94; PULSE 80; RESP 16; O2SAT 97
--- NOTE | 2025-02-22 22:08 | XRAY ---
Indication: Chest pain. Short of breath. History pneumonia. Comparison: January 16, 2025 Portable chest demonstrates new hazy lingula and right infrahilar interstitial alveolar opacities favoring pneumonia/pneumonitis. Also new tiny left effusion. Remaining heart and bony thorax unremarkable. Comment: Lung findings not reported by interpreting ER clinician. Telephone report given to Dr. Mock at 2204 hrs. on February 22, 2025.
== END 2025-02-22 17:51 | disposition home or self-care (01) ==
LOC: ED 14:41
DX: R09.1 Pleurisy (principal); Z79.899 Other long term (current) drug therapy

== ENCOUNTER 2025-06-04 02:35 | Emergency (ER) | payer OTHER ==
[2025-06-04 02:50] VITALS: RESP 18; TEMP 97.5; O2SAT 98
[2025-06-04] MEDS ORDERED: TYLENOL 325 MG ONE (02:57)
[2025-06-04] MEDS ORDERED: Reglan 10 MG/2 ML ONE (02:58)
--- NOTE | 2025-06-04 03:02 | ERPHSYRPT ---
- History of Present Illness Time Seen by Provider: 06/04/25 02:46 Source: patient, family Exam Limitations: no limitations Patient Subjective Stated Complaint: Pt. states, "I have had loose stools all day, sharp stabbing pain across my lower back and cramping in my lower abdomen. I have had a total hysterectomy so I shouldn't be cramping. I went to [facility] and I feel like they didn't listen to me or try to help me." Triage Nursing Assessment: Pt. ambulated to room without difficulty, she is A&Ox4, Skin P/W/D, REsp. even unlabored, No edema, Physician History: Patient is here with diarrhea, loose stools, stabbing pain across low back and abdominal cramping. Patient states that she is concerned that she has a kidney stone. She states that she was at [facility] just prior to here. States she had a negative CT scan with contrast at that point in time. Patient has a previous history of a total hysterectomy and therefore does not believe that she should be having "period cramps". She has otherwise been in her normal state of health. Patient is taking PO well. Same number of urinations and defecations. The patient has no signs of altered mental status, nuchal rigidity, signs of meningitis. The patient is up-to-date on all vaccinations. Allergies/Adverse Reactions: diphenhydramine [From Benadryl] Allergy (Verified 02/22/25 14:50) ketorolac [From Toradol] Allergy (Verified 02/22/25 14:50) naproxen Allergy (Verified 02/22/25 14:50) tramadol Allergy (Verified 02/22/25 14:50) Home Medications: Fluoxetine HCl 10 mg [Prozac 10 mg] 20 mg PO DAILY 01/16/25 [History] LORazepam [Ativan] 1 mg PO TIDPRN PRN 01/16/25 [History] estradioL [Estradiol (Twice Weekly)] 1 each TD WEEKLY 01/16/25 [History] Cariprazine HCl [Vraylar] 1.5 mg PO DAILY 02/22/25 [History] Hx Tetanus, Diphtheria Vaccination/Date Given: Yes Hx Influenza Vaccination/Date Given: Yes Hx Pneumococcal Vaccination/Date Given: No Immunizations Up to Date: No Travel Risk - International Travel Have you traveled outside of the country in past 3 weeks: No - Emerging Infectious Disease Are you exhibiting symptoms associated with any current EIDs: No Symptoms: Shortness of Breath - Past Medical History Pertinent Past Medical History: Yes Neurological History: No Pertinent History ENT History: No Pertinent History Cardiac History: No Pertinent History Respiratory History: Pneumonia Endocrine Medical History: No Pertinent History Musculoskeletal History: No Pertinent History GI Medical History: Gallbladder Disease History: No Pertinent History Psycho-Social History: Anxiety, Depression Female Reproductive Disorders: Endometriosis - Past Surgical History Past Surgical History: Yes Neuro Surgical History: No Pertinent History Cardiac: No Pertinent History Respiratory: No Pertinent History Gastrointestinal: Cholecystectomy Genitourinary: No Pertinent History Musculoskeletal: No Pertinent History Female Surgical History: Hysterectomy, Other Other Surgical History: CHAPLAIN RESIDENT surgery r/t endometriosis - Female History Hx Last Menstrual Period: TH Hx Now: No - Social History Smoking Status: Never smoker Exposure to second hand smoke: No Drug Use: none - Social Determinants of Health Will the patient participate in the screening: Declined to provide - Nursing Vital Signs Nursing Vital Signs: Initial Vital Signs Temperature 97.5 F 06/04/25 02:35 Pulse Rate 89 06/04/25 02:35 Respiratory Rate 18 06/04/25 02:35 Blood Pressure 118/76 06/04/25 02:35 O2 Sat by Pulse Oximetry 98 06/04/25 02:35 Pain Scale Pain Intensity 6 - Physical Exam SpO2 Interpretation: normal SpO2: 98 Comments: 06/04/25 03:01 Review of Systems Constitutional: Negative for fever. HENT: Negative for congestion. Respiratory: Negative for shortness of breath. Cardiovascular: Negative for chest pain. Gastrointestinal: Abdominal pain Genitourinary: Negative for dysuria. Musculoskeletal: Negative for back pain. Skin: Negative for rash. Neurological: Negative for headaches. Psychiatric/Behavioral: Negative for behavioral problems. All other systems reviewed and are negative. Physical Exam Vitals signs and nursing note reviewed. Constitutional: Appearance: Patient is well-developed. HENT: Head: Normocephalic and atraumatic. Eyes: Conjunctiva/sclera: Conjunctivae normal. Neck: Musculoskeletal: Normal range of motion. Trachea: No tracheal deviation. Cardiovascular: Rate and Rhythm: Normal rate. Heart sounds normal. Pulmonary: Effort: Pulmonary effort is normal. No respiratory distress. Abdominal: Palpations: Abdomen is soft. Lower abdominal tenderness without rebound or guarding, some mid back pain minimal flank pain Musculoskeletal: General: No deformity. Skin: General: Skin is warm and dry. Neurological/ Psychiatric: Mental Status: Mental status, behavior, interaction with environment is appropriate for patient's age and condition - Course Nursing assessment & vital signs reviewed: Yes Ordered Tests: Active Orders 24 hr Category Date Time Status IV Insertion STAT Care 06/04/25 02:51 Active ABDOMEN AND PELVIS W/0 CONTRAS [CT] Stat Exams 06/04/25 02:53 Completed CBC W DIFF Stat Lab 06/04/25 03:07 Completed CMP Stat Lab 06/04/25 03:07 Completed LIPASE Stat Lab 06/04/25 03:07 Completed UA W/RFX UR CULTURE Stat Lab 06/04/25 02:53 Completed Medication Summary Generic Name Dose Route Start Last Admin Trade Name Freq PRN Reason Stop Dose Admin Sodium Chloride 1,000 mls @ 999 mls/hr 06/04/25 02:51 06/04/25 03:06 Sodium Chloride 0.9% 1000 Ml IV 06/04/25 03:51 999 mls/hr .Q1H1M STA Administration Discontinued Medications Generic Name Dose Route Start Last Admin Trade Name Freq PRN Reason Stop Dose Admin Acetaminophen 975 mg 06/04/25 02:51 06/04/25 03:09 Acetaminophen 325 Mg Tablet PO 06/04/25 02:52 975 mg STAT ONE Administration Acetaminophen Confirm 06/04/25 02:57 Acetaminophen 325 Mg Tablet Administered 06/04/25 02:58 Dose 975 mg .ROUTE .STK-MED ONE Azithromycin 500 mg 06/04/25 03:48 Azithromycin 250 Mg Tablet PO 06/04/25 03:49 STAT ONE Hydromorphone HCl 1 mg 06/04/25 03:49 Hydromorphone 1 Mg/1ml Inj IV 06/04/25 03:50 STAT ONE Sodium Chloride Confirm 06/04/25 02:58 Sodium Chloride 0.9% 1000 Ml Administered 06/04/25 02:59 Dose 1,000 mls @ ud .ROUTE .STK-MED ONE Metoclopramide HCl 10 mg 06/04/25 02:51 06/04/25 03:08 Metoclopramide Hcl 10 Mg/2 Ml Vial IV 06/04/25 02:52 10 mg STAT ONE Administration Metoclopramide HCl Confirm 06/04/25 02:58 Metoclopramide Hcl 10 Mg/2 Ml Vial Administered 06/04/25 02:59 Dose 10 mg .ROUTE .K-MED ONE Lab/Rad Data: Laboratory Result Diagrams 06/04/25 03:07 06/04/25 03:07 Laboratory Results 06/04/25 06/04/25 06/04/25 Range/Units 03:07 03:07 02:53 WBC 7.8 (3.98-10.04) x10^3/uL RBC 4.28 (3.93-5.22) x10^6/uL Hgb 12.2 (11.2-15.7) g/dL Hct 37.8 (34.1-44.9) % MCV 88.3 (79.4-94.8) fL MCH 28.5 (25.6-32.2) pg MCHC 32.3 (32.2-35.5) g/dL RDW 13.0 (11.7-14.4) % Plt Count 417 H (182-369) x10^3/uL MPV 9.1 L (9.4-12.3) fL Gran % 41.8 (34.0-71.1) % Immature Gran % (Auto) 0.3 (0.001-0.429) % Nucleat RBC Rel Count 0.0 (0.00-0.2) % Eos # (Auto) 0.11 (0.04-0.36) x10^3/uL Immature Gran # (Auto) 0.02 (0.001-0.031) x10^3u/L Absolute Lymphs (auto) 3.72 (1.18-3.74) x10^3/uL Absolute Monos (auto) 0.64 (0.24-0.86) x10^3/uL Absolute Nucleated RBC 0.00 (0.00-0.012) x10^3u/L Lymphocytes % 47.8 (19.3-51.7) % Monocytes % 8.2 (4.7-12.5) % Eosinophils % 1.4 (0.7-5.8) % Basophils % 0.5 (0.1-1.2) % Absolute Granulocytes 3.25 (1.56-6.13) x10^3/uL Basophils # 0.04 (0.01-0.08) x10^3/uL Sodium 136 (135-145) mmol/L Potassium 3.6 (3.5-5.1) mmol/L Chloride 104 (98-107) mmol/L Carbon Dioxide 24 (22-30) mmol/L Anion Gap 12.0 (5-15) MEQ/L BUN 6 L (7-17) mg/dL Creatinine 0.86 (0.52-1.04) mg/dL Estimated GFR 90.3 ML/MIN Glucose 88 (74-106) mg/dL Calcium 8.9 (8.4-10.2) mg/dL Total Bilirubin 0.20 (0.2-1.3) mg/dL AST 72 H (14-36) U/L ALT 105 H (0-35) U/L Alkaline Phosphatase 133 H (38-126) U/L Serum Total Protein 8.5 H (6.3-8.2) g/dL Albumin 4.3 (3.5-5.0) g/dL Lipase 146 (23-300) U/L Urine Color Yellow (Yellow) Urine Appearance Clear (Clear) Urine pH 6.0 (4.6-8.0) Ur Specific Loyal 1.015 (1.005-1.030) Urine Protein Negative (Negative) Urine Glucose (UA) Negative (Negative) mg/dL Urine Ketones Negative (Negative) Urine Blood Negative (Negative) Urine Nitrite Negative (Negative) Urine Bilirubin Negative (Negative) Urine Urobilinogen 0.2 (0.2) mg/dL Ur Leukocyte Esterase Negative (Negative) U Hyaline Cast (Auto) NONE SEEN (0-2) /LPF Urine Microscopic RBC 0-2 (0-5) /HPF Urine Microscopic WBC 0-2 (0-5) /HPF Ur Epithelial Cells None Seen (None Seen) /HPF Urine Bacteria Rare A (None Seen) /HPF Urine Culture Reflexed NO (NO) - Progress Progress: improved Progress Note: 06/04/25 03:01 Differential diagnosis includes kidney stone, compression fracture, infection, UTI, triple AAA, pneumonia - basic labs including: CBC, lipase, CMP, UA - insert IV for symptom management - consider imaging: CT ab/pelvis or U/S Reevaluation Patient feels improved with medication. 06/04/25 03:52 CT scan does demonstrate pneumonia in the lower lungs. This is likely the source of patient's back pain. Unclear about the lower abdominal pain. No CT abnormalities in the lower abdomen. However, when I discussed this with the patient she did state that this feels like her previous bouts of pneumonia. Patient's pain is well-controlled at this point in time. Will do a first dose of antibiotic here in the emergency room tonight. Will do azithromycin going home. Patient will also be given a short course of steroids for the inflammation. Patient is 99% on room air, no leukocytosis, no fever here. I do not believe patient needs to be admitted to the hospital at this point in time. However she should have close reexam and follow-up with her PCP. She should also have repeat chest x-ray, CT scan and 1 to 2 weeks to ensure full resolution. She may of course return here at any point in time for new or changing symptoms. I did discuss all this at bedside with the patient and her . They state their understanding and they will follow-up as described. - Departure Departure Disposition: Home Clinical Impression: Community acquired pneumonia Condition: Stable Critical Care Time: No Referrals: NAOMI PONCE MD [Primary Care Provider, [facility]] - Follow up/PCP as directed Instructions: Pneumonia, Adult (DC) Prescriptions: Prednisone 10 mg [Deltasone 10 mg] 40 mg PO DAILY 5 Days #10 tablet Azithromycin 250 mg [Zithromax 250 MG TABLET] 250 mg PO ZPACK #6 tablet
[2025-06-04] MEDS: Reglan 10 MG/2 ML IV ONE (03:08)
[2025-06-04] MEDS: TYLENOL 325 MG PO ONE (03:09)
[2025-06-04 03:13] LABS: BASOPHIL % 0.5 % (0.1-1.2); Basophil (Absolute #) 0.04 x10^3/uL (0.01-0.08); Eosinophil (Absolute #) 0.11 x10^3/uL (0.04-0.36); Hematocrit 37.8 % (34.1-44.9); Hemoglobin 12.2 g/dL (11.2-15.7); IMMATURE GRAN # 0.02 x10^3u/L (0.001-0.031); IMMATURE GRAN % 0.3 % (0.001-0.429); Lymphocyte (Absolute #) 3.72 x10^3/uL (1.18-3.74); Mean Corpuscular Hemoglobin 28.5 pg (25.6-32.2); Mean Corpuscular Hgb Concent. 32.3 g/dL (32.2-35.5); Monocyte (Absolute #) 0.64 x10^3/uL (0.24-0.86); NUCLEATED RBC # 0.00 x10^3u/L (0.00-0.012); NUCLEATED RBC % 0.0 % (0.00-0.2); Platelet Count 417 x10^3/uL (182-369); Red Blood Count 4.28 x10^6/uL (3.93-5.22); White Blood Count 7.8 x10^3/uL (3.98-10.04)
[2025-06-04 03:18] LABS: Glucose, Urine Negative (Negative); Protein,Urine Dip Negative (Negative); RBC 0-2 /HPF (0-5); WBC 0-2 /HPF (0-5)
[2025-06-04 03:20] VITALS: BP 107/68; PULSE 72
[2025-06-04 03:23] LABS: Calcium 8.9 mg/dL (8.4-10.2); Carbon Dioxide 24.0 mmol/L (22-30); Creatinine 1 0.86 mg/dL (0.52-1.04); EST GLOMERULAR FILTRATION RATE 90.3 ML/MIN; Glucose 88.0 mg/dL (74-106); Potassium 3.6 mmol/L (3.5-5.1); SGOT/AST 72.0 U/L (14-36); SGPT/ALT 105.0 U/L (0-35); Total Protein 8.5 g/dL (6.3-8.2)
--- NOTE | 2025-06-04 03:42 | XRAY ---
CLINICAL HISTORY: lower abdomen pain COMPARISON: 16:56:39 [employer] . TECHNIQUE: Contiguous axial images were obtained from the level of the diaphragm to the pubic symphysis without intravenous or oral contrast. Coronal and sagittal reconstructions were also performed as indicated to increase the sensitivity for detecting clinically relevant pathology. The CT scan was performed according to ALARA (as low as reasonably achievable) principles. FINDINGS: Multiple ground-glass nodular opacities are noted involving both lungs, with the possibility of an infective etiology. These findings are slightly increased as compared to the prior study. Minimal bilateral pleural effusion with basal subsegmental collapse of both lower lobes is seen. This is a new finding. Evaluation of the abdominal and pelvic visceral organs is limited without intravenous contrast. The unenhanced liver, spleen, pancreas, and adrenal glands are grossly unremarkable. The gallbladder is not visualized. The kidneys are normal in size and attenuation without obvious calcification. There is no hydronephrosis or perinephric stranding. The ureters are normal in caliber. No adenopathy or fluid collections are seen. No evidence of focal or diffuse bowel wall thickening or evidence of bowel obstruction is seen. No imaging evidence of appendicitis. The aorta is normal in caliber. The urinary bladder is normal in contour. Pelvic viscera are grossly unremarkable. No aggressive appearing osseous lesions are identified. IMPRESSION: Multiple ground-glass nodular opacities are noted involving both lungs, with the possibility of an infective etiology. These findings are slightly increased as compared to the prior study. Minimal bilateral pleural effusion with basal subsegmental collapse of both lower lobes is seen. This is a new finding. Prior bowel inflammation has resolved. Electronically Signed by: Cristian Trujillo MD. (06/04/2025 03:40:45 EST)
[2025-06-04] MEDS ORDERED: Zithromax 250 MG TABLET ONE (03:51)
[2025-06-04] MEDS ORDERED: Hydromorphone 1 mg/ml Injection ONE (03:51)
[2025-06-04] MEDS: Zithromax 250 MG TABLET PO ONE (03:52)
[2025-06-04] MEDS: Hydromorphone 1 mg/ml Injection IV ONE (03:52)
== END 2025-06-04 04:38 | disposition home or self-care (01) ==
LOC: ED 02:35
DX: J18.9 Pneumonia, unspecified organism (principal); R19.7 Diarrhea, unspecified; M54.50 Low back pain, unspecified; R10.9 Unspecified abdominal pain; Z79.899 Other long term (current) drug therapy

== ENCOUNTER 2025-06-05 12:50 | Emergency (ER) | payer OTHER ==
[2025-06-05 12:56] VITALS: TEMP 98
[2025-06-05] MEDS ORDERED: ZOFRAN ODT 4 MG ONE (13:08)
[2025-06-05] MEDS: ZOFRAN ODT 4 MG PO ONE (13:09)
[2025-06-05] MEDS: IMODIUM 2 MG PO ONE (13:16)
--- NOTE | 2025-06-05 13:26 | XRAY ---
Indication: Cough. Comparison: February 22, 2025 PA/lateral chest demonstrates new left lower lobe hazy infiltrate without consolidation/large effusion. Remaining heart and lungs unremarkable. Bony thorax intact.
--- NOTE | 2025-06-05 13:36 | ERPHSYRPT ---
- History of Present Illness Time Seen by Provider: 06/05/25 12:50 Patient Subjective Stated Complaint: Pt states "I was diagnosed with pneumonia on the and was given antibiotics to take. I work at an [employer] and now my stomach is cramping and I am having water diarrhea, and my shortness of breath has not gone away." Triage Nursing Assessment: PT presented alert and oriented X 3, skin pwd. pt ambulates with an upright steady gait, able to speak in clear full sentences. PT resting comfortably on the bed. 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 She has been having cough, abdominal pain and cramping with watery diarrhea. No fever or chills. Tried at home nebulizer did not resolve her cough. Patient denies smoking. No history of asthma or COPD. Allergies/Adverse Reactions: diphenhydramine [From Benadryl] Allergy (Verified 02/22/25 14:50) ketorolac [From Toradol] Allergy (Verified 02/22/25 14:50) naproxen Allergy (Verified 02/22/25 14:50) tramadol Allergy (Verified 02/22/25 14:50) Home Medications: Fluoxetine HCl 10 mg [Prozac 10 mg] 20 mg PO DAILY 01/16/25 [History] LORazepam [Ativan] 1 mg PO TIDPRN PRN 01/16/25 [History] estradioL [Estradiol (Twice Weekly)] 1 each TD WEEKLY 01/16/25 [History] Cariprazine HCl [Vraylar] 1.5 mg PO DAILY 02/22/25 [History] Hx Tetanus, Diphtheria Vaccination/Date Given: Yes Hx Influenza Vaccination/Date Given: No Hx Pneumococcal Vaccination/Date Given: No Immunizations Up to Date: No Travel Risk - International Travel Have you traveled outside of the country in past 3 weeks: No - Emerging Infectious Disease Are you exhibiting symptoms associated with any current EIDs: No Symptoms: Shortness of Breath - Review of Systems All Other Systems: Reviewed and Negative (As per HPI otherwise negative) - Past Medical History Pertinent Past Medical History: Yes Neurological History: No Pertinent History ENT History: No Pertinent History Cardiac History: No Pertinent History Respiratory History: Pneumonia Endocrine Medical History: No Pertinent History Musculoskeletal History: No Pertinent History GI Medical History: Gallbladder Disease History: No Pertinent History Psycho-Social History: Anxiety, Depression Female Reproductive Disorders: Endometriosis - Past Surgical History Past Surgical History: Yes Neuro Surgical History: No Pertinent History Cardiac: No Pertinent History Respiratory: No Pertinent History Gastrointestinal: Cholecystectomy Genitourinary: No Pertinent History Musculoskeletal: No Pertinent History Female Surgical History: Hysterectomy, Other Other Surgical History: CARDER BLANKETS surgery r/t endometriosis - Female History Hx Last Menstrual Period: total histerectomy Hx Now: No - Social History Smoking Status: Never smoker Exposure to second hand smoke: Yes Drug Use: other - Social Determinants of Health Will the patient participate in the screening: Declined to provide - Nursing Vital Signs Nursing Vital Signs: Initial Vital Signs Temperature 98.0 F 06/05/25 12:50 Pulse Rate 85 06/05/25 12:50 Respiratory Rate 20 06/05/25 12:50 Blood Pressure 121/79 06/05/25 12:50 O2 Sat by Pulse Oximetry 99 06/05/25 12:50 Pain Scale Pain Intensity 0 - Physical Exam SpO2: 98 Comments: 06/05/25 13:36 General: Well-nourished well-developed. No apparent distress. HEENT: Normocephalic atraumatic no obvious facial or neck deformity or injury. Neck: Supple. No deformity or mass noted. CV: RRR NL Perfusion. No edema Resp: No Respiratory distress or adventitious breath sounds Abd: ND positive bowel sounds. No focal tenderness although diffusely uncomfortable with palpation. MSK: No deformity or TTP Neuro: Alert and Romance x4. No gross focal neurologic changes Psych: No SI, HI or grave disability Ordered Tests: Active Orders 24 hr Category Date Time Status ABDOMEN AND PELVIS W CONTRAST [CT] Stat Exams 06/05/25 14:46 Completed CHEST 2 VIEWS (PA AND LAT) Stat Exams 06/05/25 13:04 Completed CBC W DIFF Stat Lab 06/05/25 13:40 Completed CMP Stat Lab 06/05/25 13:40 Completed CULTURE,URINE Stat Lab 06/05/25 13:54 Received HCG QUALITATIVE, SERUM Stat Lab 06/05/25 13:40 Completed LIPASE Stat Lab 06/05/25 13:40 Completed MAGNESIUM Stat Lab 06/05/25 13:40 Completed UA W/RFX UR CULTURE Stat Lab 06/05/25 13:54 Completed Medication Summary Discontinued Medications Generic Name Dose Route Start Last Admin Trade Name David PRN Reason Stop Dose Admin Hydromorphone HCl 0.5 mg 06/05/25 14:47 06/05/25 14:56 Hydromorphone 1 Mg/1ml Inj IV 06/05/25 14:48 0.5 mg STAT ONE Administration Hydromorphone HCl Confirm 06/05/25 14:54 Hydromorphone 1 Mg/1ml Inj Administered 06/05/25 14:55 Dose 1 mg .ROUTE .STK-MED ONE Sodium Chloride 1,000 mls @ 999 mls/hr 06/05/25 13:33 06/05/25 14:42 Sodium Chloride 0.9% 1000 Ml IV 06/05/25 14:33 Infused .Q1H1M STA Infusion Sodium Chloride Confirm 06/05/25 13:37 Sodium Chloride 0.9% 1000 Ml Administered 06/05/25 13:38 Dose 1,000 mls @ ud .ROUTE .STK-MED ONE Ceftriaxone Sodium 1 gm in 100 mls @ 200 mls/hr 06/05/25 14:47 06/05/25 15:37 Rocephin 1 Gm / 100 Ml Nacl IV 06/05/25 15:16 Infused STAT ONE Infusion Sodium Chloride 1,000 mls @ 999 mls/hr 06/05/25 14:52 06/05/25 16:01 Sodium Chloride 0.9% 1000 Ml IV 06/05/25 15:52 Infused .Q1H1M STA Infusion Sodium Chloride Confirm 06/05/25 14:54 Sodium Chloride 0.9% 1000 Ml Administered 06/05/25 14:55 Dose 1,000 mls @ ud .ROUTE .STK-MED ONE Ceftriaxone Sodium Confirm 06/05/25 14:54 Rocephin 1 Gm / 100 Ml Nacl Administered 06/05/25 14:55 Dose 1 gm in 100 mls @ ud IV .STK-MED ONE Loperamide HCl 4 mg 06/05/25 13:03 06/05/25 13:16 Loperamide Hcl 2 Mg Capsule PO 06/05/25 13:04 4 mg STAT ONE Administration Morphine Sulfate 4 mg 06/05/25 13:34 06/05/25 13:38 Morphine Sulfate 4 Mg/Ml Injection IV 06/05/25 13:35 4 mg STAT ONE Administration Morphine Sulfate Confirm 06/05/25 13:37 Morphine Sulfate 4 Mg/Ml Injection Administered 06/05/25 13:38 Dose 4 mg .ROUTE .STK-MED ONE Ondansetron HCl 4 mg 06/05/25 13:03 06/05/25 13:09 Zofran 4 Mg/Udtablet Orally Disintegrating PO 06/05/25 13:04 4 mg STAT ONE Administration Ondansetron HCl Confirm 06/05/25 13:08 Zofran 4 Mg/Udtablet Orally Disintegrating Administered 06/05/25 13:09 Dose 4 mg .ROUTE .STK-MED ONE Ondansetron HCl 4 mg 06/05/25 13:33 06/05/25 13:39 Ondansetron Hcl 4 Mg/2 Ml Vial IV 06/05/25 13:34 4 mg STAT ONE Administration Ondansetron HCl Confirm 06/05/25 13:37 Ondansetron Hcl 4 Mg/2 Ml Vial Administered 06/05/25 13:38 Dose 4 mg .ROUTE .STK-MED ONE Lab/Rad Data: Laboratory Result Diagrams 06/05/25 13:40 06/05/25 13:40 Laboratory Results 06/05/25 06/05/25 06/05/25 Range/Units 13:54 13:40 13:40 WBC (3.98-10.04) x10^3/uL RBC (3.93-5.22) x10^6/uL Hgb (11.2-15.7) g/dL Hct (34.1-44.9) % MCV (79.4-94.8) fL MCH (25.6-32.2) pg MCHC (32.2-35.5) g/dL RDW (11.7-14.4) % Plt Count (182-369) x10^3/uL MPV (9.4-12.3) fL Gran % (34.0-71.1) % Immature Gran % (Auto) (0.001-0.429) % Nucleat RBC Rel Count (0.00-0.2) % Eos # (Auto) (0.04-0.36) x10^3/uL Immature Gran # (Auto) (0.001-0.031) x10^3u/L Absolute Lymphs (auto) (1.18-3.74) x10^3/uL Absolute Monos (auto) (0.24-0.86) x10^3/uL Absolute Nucleated RBC (0.00-0.012) x10^3u/L Lymphocytes % (19.3-51.7) % Monocytes % (4.7-12.5) % Eosinophils % (0.7-5.8) % Basophils % (0.1-1.2) % Absolute Granulocytes (1.56-6.13) x10^3/uL Basophils # (0.01-0.08) x10^3/uL Sodium 140 (135-145) mmol/L Potassium 3.4 L (3.5-5.1) mmol/L Chloride 106 (98-107) mmol/L Carbon Dioxide 22 (22-30) mmol/L Anion Gap 15.2 H (5-15) MEQ/L BUN 3 L (7-17) mg/dL Creatinine 0.76 (0.52-1.04) mg/dL Estimated GFR 104.7 ML/MIN Glucose 99 (74-106) mg/dL Calcium 9.0 (8.4-10.2) mg/dL Magnesium 1.8 (1.6-2.3) mg/dL Total Bilirubin 0.20 (0.2-1.3) mg/dL AST 48 H (14-36) U/L ALT 82 H (0-35) U/L Alkaline Phosphatase 153 H (38-126) U/L Serum Total Protein 9.4 H (6.3-8.2) g/dL Albumin 4.7 (3.5-5.0) g/dL Lipase 118 (23-300) U/L Serum HCG, Qual NEGATIVE (NEGATIVE) Urine Color Yellow (Yellow) Urine Appearance Cloudy A (Clear) Urine pH 5.5 (4.6-8.0) Ur Specific [place] 1.015 (1.005-1.030) Urine Protein Negative (Negative) Urine Glucose (UA) Negative (Negative) mg/dL Urine Ketones Negative (Negative) Urine Blood Negative (Negative) Urine Nitrite Negative (Negative) Urine Bilirubin Negative (Negative) Urine Urobilinogen 0.2 (0.2) mg/dL Ur Leukocyte Esterase Negative (Negative) U Hyaline Cast (Auto) NONE SEEN (0-2) /LPF Urine Microscopic RBC 0-2 (0-5) /HPF Urine Microscopic WBC 6-10 A (0-5) /HPF Ur Epithelial Cells Many A (None Seen) /HPF Urine Bacteria Many A (None Seen) /HPF Urine Culture Reflexed YES (NO) Influenza Type A Ag (NEGATIVE) Influenza Type B Ag (NEGATIVE) RSV (PCR) (NEGATIVE) SARS-CoV-2 (PCR) (NEGATIVE) 06/05/25 06/05/25 Range/Units 13:40 13:20 WBC 6.1 (3.98-10.04) x10^3/uL RBC 4.61 (3.93-5.22) x10^6/uL Hgb 13.0 (11.2-15.7) g/dL Hct 40.5 (34.1-44.9) % MCV 87.9 (79.4-94.8) fL MCH 28.2 (25.6-32.2) pg MCHC 32.1 L (32.2-35.5) g/dL RDW 13.1 (11.7-14.4) % Plt Count 501 H (182-369) x10^3/uL MPV 9.8 (9.4-12.3) fL Gran % 52.2 (34.0-71.1) % Immature Gran % (Auto) 0.2 (0.001-0.429) % Nucleat RBC Rel Count 0.0 (0.00-0.2) % Eos # (Auto) 0.06 (0.04-0.36) x10^3/uL Immature Gran # (Auto) 0.01 (0.001-0.031) x10^3u/L Absolute Lymphs (auto) 2.42 (1.18-3.74) x10^3/uL Absolute Monos (auto) 0.41 (0.24-0.86) x10^3/uL Absolute Nucleated RBC 0.00 (0.00-0.012) x10^3u/L Lymphocytes % 39.4 (19.3-51.7) % Monocytes % 6.7 (4.7-12.5) % Eosinophils % 1.0 (0.7-5.8) % Basophils % 0.5 (0.1-1.2) % Absolute Granulocytes 3.21 (1.56-6.13) x10^3/uL Basophils # 0.03 (0.01-0.08) x10^3/uL Sodium (135-145) mmol/L Potassium (3.5-5.1) mmol/L Chloride (98-107) mmol/L Carbon Dioxide (22-30) mmol/L Anion Gap (5-15) MEQ/L BUN (7-17) mg/dL Creatinine (0.52-1.04) mg/dL Estimated GFR ML/MIN Glucose (74-106) mg/dL Calcium (8.4-10.2) mg/dL Magnesium (1.6-2.3) mg/dL Total Bilirubin (0.2-1.3) mg/dL AST (14-36) U/L ALT (0-35) U/L Alkaline Phosphatase (38-126) U/L Serum Total Protein (6.3-8.2) g/dL Albumin (3.5-5.0) g/dL Lipase (23-300) U/L Serum HCG, Qual (NEGATIVE) Urine Color (Yellow) Urine Appearance (Clear) Urine pH (4.6-8.0) Ur Specific [place] (1.005-1.030) Urine Protein (Negative) Urine Glucose (UA) (Negative) mg/dL Urine Ketones (Negative) Urine Blood (Negative) Urine Nitrite (Negative) Urine Bilirubin (Negative) Urine Urobilinogen (0.2) mg/dL Ur Leukocyte Esterase (Negative) U Hyaline Cast (Auto) (0-2) /LPF Urine Microscopic RBC (0-5) /HPF Urine Microscopic WBC (0-5) /HPF Ur Epithelial Cells (None Seen) /HPF Urine Bacteria (None Seen) /HPF Urine Culture Reflexed (NO) Influenza Type A Ag NEGATIVE (NEGATIVE) Influenza Type B Ag NEGATIVE (NEGATIVE) RSV (PCR) NEGATIVE (NEGATIVE) SARS-CoV-2 (PCR) NEGATIVE (NEGATIVE) - Progress Progress Note: 06/05/25 14:46 Patient has new evident left lower lobe infiltrate. Will add Rocephin to her coverage. Since she is having significant abdominal pain especially localizing now towards the right lower quadrant will add a CT of the abdomen and pelvis. 06/05/25 17:24 Patient doing well. She is reading in no distress. At this time we will add Augmentin to her coverage for her pneumonia - Departure Departure Disposition: Home Clinical Impression: Lung nodule seen on imaging study Pneumonia Qualifiers: Pneumonia type: due to unspecified organism Laterality: unspecified laterality Lung location: unspecified part of lung Qualified Code(s): J18.9 - Pneumonia, unspecified organism Abdominal pain Qualifiers: Abdominal location: unspecified location Qualified Code(s): R10.9 - Unspecified abdominal pain Condition: Stable Critical Care Time: No Referrals: NAMOI PONCE MD [Primary Care Provider, [facility]] - Follow up/PCP as directed Instructions: Pneumonia, Adult (DC), Abdominal pain Additional Instructions: Continue azithromycin. Will add an additional antibiotic twice a day for 10 days. Buy and use a probiotic [id number] at your pharmacy and use twice daily to help control your GI symptoms. You have been evaluated for an emergency medical condition. At this time, given the current history and events presented, the examination conducted and any possible testing you may have had, you have been given a presumptive diagnosis based on the current information is obtained. Your discharge diagnosis is presumptive and not necessarily definitive. Medical conditions present in various stages very often without all the symptoms or findings described in medical literature. Other symptoms, concerns or conditions may arise and your diagnoses may evolve or change and/or your condition could potentially worsen after the time of disposition or discharge. You have been given a presumptive diagnosis and your condition appears to be stable, but your medical issues can change or worsen. If there is worsening of your condition including difficulty breathing, swallowing, speaking, chest pain or pressure, intractable vomiting, worsening or changing mental status, numbness, tingling or weakness of your body or arms or legs, thoughts or plans of harming yourself or others, or any other concerns, call 911 and/or return immediately to the closest emergency department. It is important you follow-up with your doctor on the next business day. Call your doctor, or the referral provided if you do not have a doctor, when they open to schedule a follow-up appointment in the next 1 or latest 2 days. Please refer to the attached sheet. If you do not have primary care doctor, you can call the [facility] referral line at [phone]. Return immediately if your symptoms worsen or if you are unable to obtain further care. My team and I thank you for choosing the [facility] Emergency Department emergency healthcare needs. We wish you a speedy recovery. Very respectfully, Dr. Aram Flowers M.D. [place] [employer] Board-certified Emergency Physician Prescriptions: Amox Tr/Potass Clav. 875 mg [Augmentin 875-125 Tablet] 1 each PO BID 10 Days #20 tablet
[2025-06-05] MEDS ORDERED: Zofran 4 MG/2 ML VIAL ONE (13:37)
[2025-06-05] MEDS ORDERED: MORPHINE SULFATE 4 MG INJ ONE (13:37)
[2025-06-05] MEDS: MORPHINE SULFATE 4 MG INJ IV ONE (13:38)
[2025-06-05] MEDS: Zofran 4 MG/2 ML VIAL IV ONE (13:39)
[2025-06-05 13:47] LABS: BASOPHIL % 0.5 % (0.1-1.2); Basophil (Absolute #) 0.03 x10^3/uL (0.01-0.08); Eosinophil (Absolute #) 0.06 x10^3/uL (0.04-0.36); Hematocrit 40.5 % (34.1-44.9); Hemoglobin 13.0 g/dL (11.2-15.7); IMMATURE GRAN # 0.01 x10^3u/L (0.001-0.031); IMMATURE GRAN % 0.2 % (0.001-0.429); Lymphocyte (Absolute #) 2.42 x10^3/uL (1.18-3.74); Mean Corpuscular Hemoglobin 28.2 pg (25.6-32.2); Mean Corpuscular Hgb Concent. 32.1 g/dL (32.2-35.5); Monocyte (Absolute #) 0.41 x10^3/uL (0.24-0.86); NUCLEATED RBC # 0.00 x10^3u/L (0.00-0.012); NUCLEATED RBC % 0.0 % (0.00-0.2); Platelet Count 501 x10^3/uL (182-369); Red Blood Count 4.61 x10^6/uL (3.93-5.22); White Blood Count 6.1 x10^3/uL (3.98-10.04)
[2025-06-05 14:04] LABS: Calcium 9.0 mg/dL (8.4-10.2); Carbon Dioxide 22.0 mmol/L (22-30); Creatinine 1 0.76 mg/dL (0.52-1.04); EST GLOMERULAR FILTRATION RATE 104.7 ML/MIN; Glucose 99.0 mg/dL (74-106); Potassium 3.4 mmol/L (3.5-5.1); SGOT/AST 48.0 U/L (14-36); SGPT/ALT 82.0 U/L (0-35); Total Protein 9.4 g/dL (6.3-8.2)
[2025-06-05 14:05] LABS: INFLUENZA A NEGATIVE (NEGATIVE); INFLUENZA B NEGATIVE (NEGATIVE); RESPIRATORY SYNCTIAL VIRUS NEGATIVE (NEGATIVE); SARS-CoV-2 Xpert Express NEGATIVE (NEGATIVE)
[2025-06-05 14:10] LABS: HCG SERUM TEST NEGATIVE (NEGATIVE)
[2025-06-05 14:23] LABS: Glucose, Urine Negative (Negative); Protein,Urine Dip Negative (Negative); RBC 0-2 /HPF (0-5)
[2025-06-05] MEDS ORDERED: ROCEPHIN 1 GM / 100 ML NaCl 1 GM/100 ML IVPB IV ONE (14:54)
[2025-06-05] MEDS ORDERED: Hydromorphone 1 mg/ml Injection ONE (14:54)
[2025-06-05] MEDS: Hydromorphone 1 mg/ml Injection IV ONE (14:56)
[2025-06-05] MEDS: ROCEPHIN 1 GM / 100 ML NaCl 1 GM/100 ML IVPB IV ONE (14:56)
--- NOTE | 2025-06-05 17:04 | XRAY ---
Indication: Pain. Multiple contiguous axial images obtained through the abdomen and pelvis using 80 cc Isovue 370 contrast. Comparison: 1 day earlier. Lung bases demonstrates grossly stable diffuse bilateral patchy ground-glass opacities and tiny bibasilar noncalcified nodules largest left lower lobe measuring 8 mm. Heart not enlarged. Noncontrasted stomach and bowel loops appear nonobstructed. Again cholecystectomy and hysterectomy. Pelvis again demonstrates tiny nonspecific free fluid. No walled-off fluid collection or free air. Remaining liver, pancreas, spleen, adrenal glands, kidneys, ureters, bladder, and aorta are unremarkable. Impression: No change compared to yesterday's exam. Grossly stable bibasilar ground-glass airspace disease, indeterminate bibasilar noncalcified lung nodules, and tiny pelvic free fluid. No new intra-abdominal/pelvic abnormalities.
[2025-06-05 17:27] VITALS: O2SAT 98
[2025-06-05 17:33] VITALS: BP 118/73; PULSE 104; RESP 23
== END 2025-06-05 17:47 | disposition home or self-care (01) ==
LOC: ED 12:50
DX: J18.9 Pneumonia, unspecified organism (principal); R91.1 Solitary pulmonary nodule; R10.9 Unspecified abdominal pain; R05.1 Acute cough; R19.7 Diarrhea, unspecified; Z79.899 Other long term (current) drug therapy

== ENCOUNTER 2025-06-06 10:17 | Emergency (ER) | payer OTHER ==
[2025-06-06 10:41] VITALS: TEMP 97.4
--- NOTE | 2025-06-06 10:50 | ERPHSYRPT ---
- History of Present Illness Time Seen by Provider: 06/06/25 10:43 Historian: patient Exam Limitations: no limitations Patient Subjective Stated Complaint: patient states [facility], patient states she has a headache, has been vomiting and has lower abdominal pain Triage Nursing Assessment: patient presents to ed via private vehicle, patient able to ambulate into ed without complication, patient afebrile, vitals wnl, skin pwd, lungs clear throughout all garcia, abdomen soft/nontender/nondistended, bowel sounds active x 4 quadrants, patient states she has a headache and lower abdominal pain rating pain 9/10 Physician History: 35-year-old female history of pneumonia anxiety depression endometriosis presents to our ED for evaluation of nausea vomiting and lower abdominal pain. Patient added that she has a headache. Patient was released from [facility] ED yesterday after being treated for pneumonia. No trauma no fever. No diarrhea no rash. Symptoms are mild to moderate in intensity. No specific worsening or improving factors. Patient otherwise feels well and voices no other complaints or concerns at this time. Portions of this note were created with voice recognition technology. There may be grammatical, spelling, punctuation or sound alike errors Timing/Duration: today Activities at Onset: none Quality: aching Abdominal Pain Onset Location: other (Lower abdominal pain) Pain Radiation: no radiation Severity of Pain-Max: moderate Severity of Pain-Current: mild Modifying Factors: Improves With: nothing Associated Symptoms: nausea Previous symptoms: no prior history Allergies/Adverse Reactions: diphenhydramine [From Benadryl] Allergy (Verified 06/06/25 10:42) ketorolac [From Toradol] Allergy (Verified 06/06/25 10:42) naproxen Allergy (Verified 06/06/25 10:42) tramadol Allergy (Verified 06/06/25 10:42) Home Medications: Fluoxetine HCl 10 mg [Prozac 10 mg] 20 mg PO DAILY 01/16/25 [History] LORazepam [Ativan] 1 mg PO TIDPRN PRN 01/16/25 [History] estradioL [Estradiol (Twice Weekly)] 1 each TD WEEKLY 01/16/25 [History] Hx Tetanus, Diphtheria Vaccination/Date Given: Yes Hx Influenza Vaccination/Date Given: No Hx Pneumococcal Vaccination/Date Given: No Travel Risk - International Travel Have you traveled outside of the country in past 3 weeks: No - Emerging Infectious Disease Are you exhibiting symptoms associated with any current EIDs: No Symptoms: Abdominal Pain - Review of Systems All Other Systems: Reviewed and Negative - Past Medical History Pertinent Past Medical History: Yes Neurological History: No Pertinent History ENT History: No Pertinent History Cardiac History: No Pertinent History Respiratory History: Pneumonia Endocrine Medical History: No Pertinent History Musculoskeletal History: No Pertinent History GI Medical History: Gallbladder Disease History: No Pertinent History Psycho-Social History: Anxiety, Depression Female Reproductive Disorders: Endometriosis - Past Surgical History Past Surgical History: Yes Neuro Surgical History: No Pertinent History Cardiac: No Pertinent History Respiratory: No Pertinent History Gastrointestinal: Cholecystectomy Genitourinary: No Pertinent History Musculoskeletal: No Pertinent History Female Surgical History: Hysterectomy, Other Other Surgical History: [employer] surgery r/t endometriosis - Female History Hx Last Menstrual Period: total histerectomy Hx Now: No - Social History Smoking Status: Never smoker Exposure to second hand smoke: Yes Drug Use: other - Social Determinants of Health Will the patient participate in the screening: Yes Do you worry about a steady place to live?: No Do you have any problems with any of the following?: No known problems In the past 12 months,have you had to go without utilities?: No Transportation Issues: No Has anyone in your support network made you feel unsafe?: No Have you or anyone in your house had to go w/o enough food: No - Nursing Vital Signs Nursing Vital Signs: Initial Vital Signs Temperature 97.4 F 06/06/25 10:17 Pulse Rate 88 06/06/25 10:17 Respiratory Rate 16 06/06/25 10:17 Blood Pressure 134/94 06/06/25 10:17 O2 Sat by Pulse Oximetry 100 06/06/25 10:17 Pain Scale Pain Intensity 2 - Physical Exam General Appearance: no apparent distress, alert Eye Exam: PERRL/EOMI, eyes nml inspection Ears, Nose, Throat Exam: normal ENT inspection, pharynx normal, moist mucous membranes Neck Exam: normal inspection, non-tender, supple, full range of motion Respiratory Exam: normal breath sounds, lungs clear, No respiratory distress Cardiovascular Exam: regular rate/rhythm, normal heart sounds Gastrointestinal/Abdomen Exam: soft, No tenderness, No mass Back Exam: normal inspection, normal range of motion, No CVA tenderness, No vertebral tenderness Extremity Exam: normal inspection, normal range of motion, pelvis stable Neurologic Exam: alert, oriented x 3, cooperative, normal mood/affect, nml cerebellar function, sensation nml, No motor deficits Skin Exam: normal color, warm, dry SpO2 Interpretation: normal SpO2: 100 O2 Delivery: Room Air - Course Nursing assessment & vital signs reviewed: Yes - Radiology Exams Chest X-ray Interpretation: Teleradiologist Report (Portable chest demonstrates grossly stable left lower lobe and new subtle) - CT Exams Abdomen/Pelvis CT Interpretation: Tele-radiologist Report (No change compared to ER CT exams from 1 day and 2 days earlier.) Ordered Tests: Active Orders 24 hr Category Date Time Status IV Insertion STAT Care 06/06/25 11:05 Active ABDOMEN AND PELVIS W/0 CONTRAS [CT] Stat Exams 06/06/25 12:17 Completed CHEST 1 VIEW (PORTABLE) Stat Exams 06/06/25 11:48 Completed CBC W DIFF Stat Lab 06/06/25 11:15 Completed CMP Stat Lab 06/06/25 11:15 Completed D-DIMER QUANTITATIVE Stat Lab 06/06/25 11:15 Completed HCG QUALITATIVE, URINE Stat Lab 06/06/25 11:05 Completed TROPONIN Q4H Lab 06/06/25 11:15 Completed TROPONIN Q4H Lab 06/06/25 14:35 Completed TROPONIN Q4H Lab 06/06/25 19:15 Ordered UA W/RFX UR CULTURE Stat Lab 06/06/25 11:05 Completed Medication Summary Generic Name Dose Route Start Last Admin Trade Name Freq PRN Reason Stop Dose Admin Sodium Chloride 1,000 mls @ 100 mls/hr 06/06/25 11:15 06/06/25 11:13 Sodium Chloride 0.9% 1000 Ml IV 07/06/25 11:14 100 mls/hr .Q10H BOLA Administration Discontinued Medications Generic Name Dose Route Start Last Admin Trade Name Freq PRN Reason Stop Dose Admin Acetaminophen 1,000 mg 06/06/25 11:09 Acetaminophen 1,000 Mg/100 Ml Ml IV 06/06/25 11:10 ONCE STA Al Hydrox/Mg Hydrox/Simethicone Confirm 06/06/25 14:46 Mag Hydrox/Al Hydrox/Simeth 30 Ml Udcup Administered 06/06/25 14:47 Dose 30 ml .ROUTE .STK-MED ONE Acetaminophen Confirm 06/06/25 11:09 Ofirmev Administered 06/06/25 11:10 Dose 100 mls @ ud IV .STK-MED ONE Acetaminophen 100 mls @ 400 mls/hr 06/06/25 11:15 06/06/25 11:42 Ofirmev IV 06/06/25 11:29 Infused STAT ONE Infusion Lidocaine HCl Confirm 06/06/25 14:46 Lidocaine Hcl 2% Viscous 15 Ml Udcup Administered 06/06/25 14:47 Dose 15 ml .ROUTE .STK-MED ONE Magnesium Hydroxide 45 ml 06/06/25 14:35 06/06/25 14:48 Mag Hydrx/Alum Hyd/Simeth/Lido 45 Ml Bottle PO 06/06/25 14:36 45 ml STAT ONE Administration Pantoprazole Sodium 40 mg 06/06/25 14:34 06/06/25 14:49 Pantoprazole 40 Mg Vial IV 06/06/25 14:35 40 mg STAT ONE Administration Pantoprazole Sodium Confirm 06/06/25 14:45 Pantoprazole 40 Mg Vial Administered 06/06/25 14:46 Dose 40 mg IV .STK-MED ONE Lab/Rad Data: Laboratory Result Diagrams 06/06/25 11:15 06/06/25 11:15 Laboratory Results 06/06/25 06/06/25 06/06/25 Range/Units 14:35 11:15 11:15 WBC (3.98-10.04) x10^3/uL RBC (3.93-5.22) x10^6/uL Hgb (11.2-15.7) g/dL Hct (34.1-44.9) % MCV (79.4-94.8) fL MCH (25.6-32.2) pg MCHC (32.2-35.5) g/dL RDW (11.7-14.4) % Plt Count (182-369) x10^3/uL MPV (9.4-12.3) fL Gran % (34.0-71.1) % Immature Gran % (Auto) (0.001-0.429) % Nucleat RBC Rel Count (0.00-0.2) % Eos # (Auto) (0.04-0.36) x10^3/uL Immature Gran # (Auto) (0.001-0.031) x10^3u/L Absolute Lymphs (auto) (1.18-3.74) x10^3/uL Absolute Monos (auto) (0.24-0.86) x10^3/uL Absolute Nucleated RBC (0.00-0.012) x10^3u/L Lymphocytes % (19.3-51.7) % Monocytes % (4.7-12.5) % Eosinophils % (0.7-5.8) % Basophils % (0.1-1.2) % Absolute Granulocytes (1.56-6.13) x10^3/uL Basophils # (0.01-0.08) x10^3/uL D-Dimer 0.35 (0.0-0.50) mg/L Sodium (135-145) mmol/L Potassium (3.5-5.1) mmol/L Chloride (98-107) mmol/L Carbon Dioxide (22-30) mmol/L Anion Gap (5-15) MEQ/L BUN (7-17) mg/dL Creatinine (0.52-1.04) mg/dL Estimated GFR ML/MIN Glucose (74-106) mg/dL Calcium (8.4-10.2) mg/dL Total Bilirubin (0.2-1.3) mg/dL AST (14-36) U/L ALT (0-35) U/L Alkaline Phosphatase (38-126) U/L Troponin I < 0.012 < 0.012 (0.000-0.033) ng/mL Serum Total Protein (6.3-8.2) g/dL Albumin (3.5-5.0) g/dL Urine Color (Yellow) Urine Appearance (Clear) Urine pH (4.6-8.0) Ur Specific Tabor (1.005-1.030) Urine Protein (Negative) Urine Glucose (UA) (Negative) mg/dL Urine Ketones (Negative) Urine Blood (Negative) Urine Nitrite (Negative) Urine Bilirubin (Negative) Urine Urobilinogen (0.2) mg/dL Ur Leukocyte Esterase (Negative) U Hyaline Cast (Auto) (0-2) /LPF Urine Microscopic RBC (0-5) /HPF Urine Microscopic WBC (0-5) /HPF Ur Epithelial Cells (None Seen) /HPF Urine Bacteria (None Seen) /HPF Urine Culture Reflexed (NO) Urine HCG, Qual (NEGATIVE) 06/06/25 06/06/25 06/06/25 Range/Units 11:15 11:15 11:05 WBC 6.8 (3.98-10.04) x10^3/uL RBC 4.34 (3.93-5.22) x10^6/uL Hgb 12.3 (11.2-15.7) g/dL Hct 38.5 (34.1-44.9) % MCV 88.7 (79.4-94.8) fL MCH 28.3 (25.6-32.2) pg MCHC 31.9 L (32.2-35.5) g/dL RDW 13.0 (11.7-14.4) % Plt Count 439 H (182-369) x10^3/uL MPV 9.3 L (9.4-12.3) fL Gran % 55.0 (34.0-71.1) % Immature Gran % (Auto) 0.1 (0.001-0.429) % Nucleat RBC Rel Count 0.0 (0.00-0.2) % Eos # (Auto) 0.10 (0.04-0.36) x10^3/uL Immature Gran # (Auto) 0.01 (0.001-0.031) x10^3u/L Absolute Lymphs (auto) 2.44 (1.18-3.74) x10^3/uL Absolute Monos (auto) 0.49 (0.24-0.86) x10^3/uL Absolute Nucleated RBC 0.00 (0.00-0.012) x10^3u/L Lymphocytes % 35.8 (19.3-51.7) % Monocytes % 7.2 (4.7-12.5) % Eosinophils % 1.5 (0.7-5.8) % Basophils % 0.4 (0.1-1.2) % Absolute Granulocytes 3.74 (1.56-6.13) x10^3/uL Basophils # 0.03 (0.01-0.08) x10^3/uL D-Dimer (0.0-0.50) mg/L Sodium 139 (135-145) mmol/L Potassium 3.5 (3.5-5.1) mmol/L Chloride 104 (98-107) mmol/L Carbon Dioxide 25 (22-30) mmol/L Anion Gap 12.8 (5-15) MEQ/L BUN 3 L (7-17) mg/dL Creatinine 0.78 (0.52-1.04) mg/dL Estimated GFR 101.5 ML/MIN Glucose 98 (74-106) mg/dL Calcium 9.0 (8.4-10.2) mg/dL Total Bilirubin 0.30 (0.2-1.3) mg/dL AST 44 H (14-36) U/L ALT 64 H (0-35) U/L Alkaline Phosphatase 142 H (38-126) U/L Troponin I (0.000-0.033) ng/mL Serum Total Protein 9.2 H (6.3-8.2) g/dL Albumin 4.4 (3.5-5.0) g/dL Urine Color (Yellow) Urine Appearance (Clear) Urine pH (4.6-8.0) Ur Specific Tabor (1.005-1.030) Urine Protein (Negative) Urine Glucose (UA) (Negative) mg/dL Urine Ketones (Negative) Urine Blood (Negative) Urine Nitrite (Negative) Urine Bilirubin (Negative) Urine Urobilinogen (0.2) mg/dL Ur Leukocyte Esterase (Negative) U Hyaline Cast (Auto) (0-2) /LPF Urine Microscopic RBC (0-5) /HPF Urine Microscopic WBC (0-5) /HPF Ur Epithelial Cells (None Seen) /HPF Urine Bacteria (None Seen) /HPF Urine Culture Reflexed (NO) Urine HCG, Qual NEGATIVE (NEGATIVE) 06/06/25 Range/Units 11:05 WBC (3.98-10.04) x10^3/uL RBC (3.93-5.22) x10^6/uL Hgb (11.2-15.7) g/dL Hct (34.1-44.9) % MCV (79.4-94.8) fL MCH (25.6-32.2) pg MCHC (32.2-35.5) g/dL RDW (11.7-14.4) % Plt Count (182-369) x10^3/uL MPV (9.4-12.3) fL Gran % (34.0-71.1) % Immature Gran % (Auto) (0.001-0.429) % Nucleat RBC Rel Count (0.00-0.2) % Eos # (Auto) (0.04-0.36) x10^3/uL Immature Gran # (Auto) (0.001-0.031) x10^3u/L Absolute Lymphs (auto) (1.18-3.74) x10^3/uL Absolute Monos (auto) (0.24-0.86) x10^3/uL Absolute Nucleated RBC (0.00-0.012) x10^3u/L Lymphocytes % (19.3-51.7) % Monocytes % (4.7-12.5) % Eosinophils % (0.7-5.8) % Basophils % (0.1-1.2) % Absolute Granulocytes (1.56-6.13) x10^3/uL Basophils # (0.01-0.08) x10^3/uL D-Dimer (0.0-0.50) mg/L Sodium (135-145) mmol/L Potassium (3.5-5.1) mmol/L Chloride (98-107) mmol/L Carbon Dioxide (22-30) mmol/L Anion Gap (5-15) MEQ/L BUN (7-17) mg/dL Creatinine (0.52-1.04) mg/dL Estimated GFR ML/MIN Glucose (74-106) mg/dL Calcium (8.4-10.2) mg/dL Total Bilirubin (0.2-1.3) mg/dL AST (14-36) U/L ALT (0-35) U/L Alkaline Phosphatase (38-126) U/L Troponin I (0.000-0.033) ng/mL Serum Total Protein (6.3-8.2) g/dL Albumin (3.5-5.0) g/dL Urine Color Yellow (Yellow) Urine Appearance Clear (Clear) Urine pH 6.5 (4.6-8.0) Ur Specific Tabor 1.010 (1.005-1.030) Urine Protein Negative (Negative) Urine Glucose (UA) Negative (Negative) mg/dL Urine Ketones Negative (Negative) Urine Blood Negative (Negative) Urine Nitrite Negative (Negative) Urine Bilirubin Negative (Negative) Urine Urobilinogen 0.2 (0.2) mg/dL Ur Leukocyte Esterase Negative (Negative) U Hyaline Cast (Auto) NONE SEEN (0-2) /LPF Urine Microscopic RBC 0-2 (0-5) /HPF Urine Microscopic WBC 3-5 (0-5) /HPF Ur Epithelial Cells Few (None Seen) /HPF Urine Bacteria Rare A (None Seen) /HPF Urine Culture Reflexed NO (NO) Urine HCG, Qual (NEGATIVE) - Progress Progress: improved Progress Note: Patient's curb 65 score for pneumonia severity is 0 06/06/25 12:14 Ambulatory pulse oximetry is normal at 96 to 97% 06/06/25 12:21 35-year-old female history of pneumonia anxiety depression endometriosis presents to our ED for evaluation of nausea vomiting and lower abdominal pain. Patient added that she has a headache. Patient was released from [facility] ED yesterday after being treated for pneumonia. No trauma no fever. Physical exam nonremarkable. D-dimer negative. Troponin negative x 2. CT abdomen pelvis negative. No change from CT scan completed yesterday. Patient received Protonix and GI cocktail for pain control. Pain significantly improved. Patient now sleeping. Patient also received Randell Mab, IV Tylenol. Subtle bilateral lower lobe infiltrates. Patient currently on azithromycin and Augmentin. No indication for further workup. Patient agrees to continue her antibiotic therapy as per recommended by her previous physicians. No indication for additional antibiotics.. She agrees to follow-up with her primary care doctor within 48 hours. Patient voices no other complaints or concerns at this time. Chest x-ray independently reviewed and interpreted by Dr. De La Rosa. This is a preliminary read. Lower lobe infiltrate observed. Lower lobe infiltrate confirmed by radiologist/formal read. Portions of this note were created with voice recognition technology. There may be grammatical, spelling, punctuation or sound alike errors Differential diagnosis for abdominal pain includes gastroenteritis, ulcer, colitis History obtained from patient. Complexity of problems addressed is moderate acute complicated. No critical care time. Complex of data reviewed and analyzed is moderate. Test ordered chest reviewed results analyzed and correlated clinically with history and physical exam. Risk of complication and or risk of morbidity/mortality of patient management is low. Vital stable. Time spent to discharge patient is approximately 15 minutes. Plan of care established for shared decision making. No social determinants of health present to impede follow-up. Portions of this note were created with voice recognition technology. There may be grammatical, spelling, punctuation or sound alike errors 06/06/25 15:47 Counseled pt/family regarding: lab results - Departure Departure Disposition: Home Clinical Impression: Pneumonia, Abdominal pain Condition: Stable Critical Care Time: No Referrals: NAOMI PONCE MD [Primary Care Provider, [facility]] - Follow up/PCP as directed Additional Instructions: Discharge/Care Plan MARLO VILLA was seen on 06/06/25 in the Emergency Room. The patient was counseled regarding Diagnosis,Lab results, Imaging studies, need for follow up and when to return to the Emergency Room. Prescriptions given: Discharge Note I have spoken with the patient and/or caregivers. I have explained the patient's condition, diagnosis and treatment plan based on the information available to me at this time. I have answered the patient's and/or caregiver's questions and addressed any concerns. The patient and/or caregivers have as good understanding of the patient's diagnosis, condition and treatment plan as can be expected at this point. The vital signs have been stable. The patient's condition is stable and appropriate for discharge from the emergency department. The patient will pursue further outpatient evaluation with the primary care physician or other designated or consulting physician as outlined in the discharge instructions. The patient and/or caregivers are agreeable to this plan of care and follow-up instructions have been explained in detail. The patient and/or caregivers have received these instruction. The patient/and or caregivers are aware that any significant change in condition or worsening of symptoms should prompt an immediate return to this or the closest emergency department or call 911.
[2025-06-06] MEDS ORDERED: OFIRMEV 100 ML IV ONE (11:09)
[2025-06-06] MEDS ORDERED: OFIRMEV IV STA (11:09)
[2025-06-06] MEDS: OFIRMEV 100 ML IV ONE (11:17)
[2025-06-06 11:21] LABS: BASOPHIL % 0.4 % (0.1-1.2); Basophil (Absolute #) 0.03 x10^3/uL (0.01-0.08); Eosinophil (Absolute #) 0.10 x10^3/uL (0.04-0.36); Hematocrit 38.5 % (34.1-44.9); Hemoglobin 12.3 g/dL (11.2-15.7); IMMATURE GRAN # 0.01 x10^3u/L (0.001-0.031); IMMATURE GRAN % 0.1 % (0.001-0.429); Lymphocyte (Absolute #) 2.44 x10^3/uL (1.18-3.74); Mean Corpuscular Hemoglobin 28.3 pg (25.6-32.2); Mean Corpuscular Hgb Concent. 31.9 g/dL (32.2-35.5); Monocyte (Absolute #) 0.49 x10^3/uL (0.24-0.86); NUCLEATED RBC # 0.00 x10^3u/L (0.00-0.012); NUCLEATED RBC % 0.0 % (0.00-0.2); Platelet Count 439 x10^3/uL (182-369); Red Blood Count 4.34 x10^6/uL (3.93-5.22); White Blood Count 6.8 x10^3/uL (3.98-10.04)
[2025-06-06 11:57] LABS: Calcium 9.0 mg/dL (8.4-10.2); Carbon Dioxide 25.0 mmol/L (22-30); Creatinine 1 0.78 mg/dL (0.52-1.04); EST GLOMERULAR FILTRATION RATE 101.5 ML/MIN; Glucose 98.0 mg/dL (74-106); Potassium 3.5 mmol/L (3.5-5.1); SGOT/AST 44.0 U/L (14-36); SGPT/ALT 64.0 U/L (0-35); Total Protein 9.2 g/dL (6.3-8.2)
--- NOTE | 2025-06-06 12:06 | XRAY ---
Indication: Short of breath. Comparison: June 05, 2025 Portable chest demonstrates grossly stable left lower lobe and new subtle right lower lobe hazy infiltrates. No consolidation/large effusion. Remaining heart and bony thorax unremarkable.
[2025-06-06 12:44] LABS: HCG URINE TEST NEGATIVE (NEGATIVE)
[2025-06-06 13:04] LABS: Glucose, Urine Negative (Negative); Protein,Urine Dip Negative (Negative); RBC 0-2 /HPF (0-5)
--- NOTE | 2025-06-06 14:17 | XRAY ---
Indication: Pain. Multiple contiguous axial images obtained through the abdomen and pelvis without contrast. Comparison: 1 day earlier. Lung bases demonstrates grossly stable bilateral patchy ground-glass opacities and indeterminate bibasilar noncalcified nodules. Heart not enlarged. Noncontrasted stomach and bowel loops remain nonobstructed. Again cholecystectomy and hysterectomy. Pelvis demonstrates stable tiny nonspecific free fluid. No free air. Remaining liver, pancreas, spleen, adrenal glands, kidneys, ureters, bladder, and aorta remain unremarkable for noncontrast exam. Impression: No change compared to ER CT exams from 1 day and 2 days earlier. Grossly stable bibasilar ground-glass airspace disease, indeterminate bibasilar noncalcified lung nodules, and tiny pelvic free fluid. No new abnormalities on this noncontrast exam.
[2025-06-06] MEDS ORDERED: PROTONIX 40 MG IV IV ONE (14:45)
[2025-06-06] MEDS ORDERED: MAALOX ES 30 ML UNIT DOSE ONE (14:46)
[2025-06-06] MEDS ORDERED: XYLOCAINE VISCOUS 2% 15 ML CUP ONE (14:46)
[2025-06-06] MEDS: GI COCKTAIL 45 ML (Maalox/Lidocaine) PO ONE (14:48)
[2025-06-06] MEDS: PROTONIX 40 MG IV IV ONE (14:49)
[2025-06-06 15:52] VITALS: O2SAT 100
[2025-06-06 16:04] VITALS: BP 104/67; PULSE 80; RESP 14
== END 2025-06-06 17:27 | disposition home or self-care (01) ==
LOC: ED 10:17
DX: J18.9 Pneumonia, unspecified organism (principal); R10.30 Lower abdominal pain, unspecified; R11.2 Nausea with vomiting, unspecified; R51.9 Headache, unspecified; Z79.899 Other long term (current) drug therapy